=== PATIENT | male | born 1970 | race Caucasian/White ===

== ENCOUNTER 2023-09-21 20:39 | Observation (INO) | payer BC, OTHER ==
--- NOTE | 2023-09-21 21:06 | ERPHSYRPT ---
- History of Present Illness Time Seen by Provider: 09/21/23 21:01 Source: patient, family, EMS Exam Limitations: no limitations Physician History: Pt is Diabetic and has elevated glucose in 300s and N/V today - no abd pain. Prior CVA , but no symptoms reported today and no change in neuro status today. Discussed risks/benefits of testing/Tx with pt and family including CBC, CMP, EKG, Lactate, Lipase, UA, COvid and Flu/RSV shabs, trops,CT abd and they wish to proceed, so these are ordered. Results discussed with pt and family. Timing/Duration: today Severity: moderate Associated Symptoms: nausea, vomiting Allergies/Adverse Reactions: No Known Drug Allergies Allergy (Unverified 09/21/23 21:01) - Review of Systems Constitutional: Fatigue, Malaise, Weakness, No Fever, No Chills Eyes: No Symptoms Ears, Nose, & Throat: No Symptoms Respiratory: No Cough, No Dyspnea Cardiac: No Chest Pain, No Edema, No Syncope Abdominal/Gastrointestinal: Abdominal Pain (with vomiting), Nausea, Vomiting, No Diarrhea Genitourinary Symptoms: No Dysuria Musculoskeletal: No Back Pain, No Neck Pain Skin: No Rash Neurological: No Dizziness, No Focal Weakness, No Sensory Changes Psychological: No Symptoms Endocrine: No Symptoms Hematologic/Lymphatic: No Symptoms Immunological/Allergic: No Symptoms All Other Systems: Reviewed and Negative - Past Medical History Pertinent Past Medical History: Yes Neurological History: Stroke - Nursing Vital Signs Nursing Vital Signs: Initial Vital Signs Temperature 98.7 F 09/21/23 20:41 Pulse Rate 106 H 09/21/23 20:41 Respiratory Rate 20 09/21/23 20:41 Blood Pressure 167/104 09/21/23 20:41 O2 Sat by Pulse Oximetry 94 L 09/21/23 20:41 Pain Scale Pain Intensity 0 - Physical Exam General Appearance: no apparent distress, alert Eye Exam: PERRL/EOMI, eyes nml inspection Ears, Nose, Throat Exam: normal ENT inspection, TMs normal, pharynx normal, moist mucous membranes Neck Exam: normal inspection, non-tender, supple, full range of motion Respiratory Exam: normal breath sounds, lungs clear, No respiratory distress Cardiovascular Exam: regular rate/rhythm, normal heart sounds, normal peripheral pulses Gastrointestinal/Abdomen Exam: soft, normal bowel sounds, tenderness (mild general - no peritoneal signs), guarding, No mass, No pulsatile mass, No rebound Rectal Exam: deferred Back Exam: normal inspection, normal range of motion, No CVA tenderness, No vertebral tenderness Extremity Exam: normal inspection, normal range of motion, pelvis stable Neurologic Exam: alert, oriented x 3, cooperative, normal mood/affect, nml cerebellar function, nml station & gait, sensation nml, No motor deficits Skin Exam: normal color, warm, dry, No rash Lymphatic Exam: No adenopathy SpO2: 94 - Course Nursing assessment & vital signs reviewed: Yes EKG Interpreted by Me: Sinus Tach, Right [place] Deviation, Right Bundle Branch Block, Non-specific ST Changes - CT Exams Abdomen/Pelvis CT Interpretation: Tele-radiologist Report, Other (perinephric fat stranding. ) Ordered Tests: Active Orders 24 hr Category Date Time Status EKG-ER Only STAT Care 09/21/23 21:07 Active IV Insertion STAT Care 09/21/23 21:07 Active ABDOMEN AND PELVIS W/0 CONTRAS [CT] Stat Exams 09/21/23 21:08 Completed CBC W DIFF Stat Lab 09/21/23 21:43 Completed CMP Stat Lab 09/21/23 21:43 Completed CULTURE,URINE Stat Lab 09/21/23 23:11 Received LIPASE Stat Lab 09/21/23 21:43 Completed Lactic Acid Stat Lab 09/21/23 21:07 Completed Lactic Acid Stat Lab 09/21/23 23:43 Received POCT GLUCOSE Stat Lab 09/21/23 20:49 Completed POCT GLUCOSE Stat Lab 09/21/23 22:50 Completed TROPONIN Q4H Lab 09/21/23 21:43 Completed TROPONIN Q4H Lab 09/22/23 01:15 Ordered TROPONIN Q4H Lab 09/22/23 05:15 Ordered UA W/RFX UR CULTURE Stat Lab 09/21/23 23:11 Completed Medication Summary Discontinued Medications Generic Name Dose Route Start Last Admin Trade Name Freq PRN Reason Stop Dose Admin Sodium Chloride 1,000 mls @ 999 mls/hr 09/21/23 21:07 09/21/23 21:29 Sodium Chloride 0.9% 1000 Ml IV 09/21/23 22:07 999 mls/hr .Q1H1M STA Administration Sodium Chloride 1,000 mls @ 999 mls/hr 09/21/23 21:11 09/21/23 23:40 Sodium Chloride 0.9% 1000 Ml IV 09/21/23 22:11 999 mls/hr .Q1H1M STA Administration Sodium Chloride Confirm 09/21/23 21:24 Sodium Chloride 0.9% 1000 Ml Administered 09/21/23 21:25 Dose 1,000 mls @ ud .ROUTE .STK-MED ONE Sodium Chloride Confirm 09/21/23 23:39 Sodium Chloride 0.9% 1000 Ml Administered 09/21/23 23:40 Dose 1,000 mls @ ud .ROUTE .STK-MED ONE Insulin Human Regular 10 unit 09/21/23 21:46 09/21/23 21:56 Insulin Regular, Human 1 Unit IV 09/21/23 21:47 10 unit STAT ONE Administration Insulin Human Regular Confirm 09/21/23 21:54 Insulin Regular, Human 1 Unit Administered 09/21/23 21:55 Dose 10 unit .ROUTE .STK-MED ONE Lorazepam 1 mg 09/21/23 21:50 09/21/23 21:56 Lorazepam 2 Mg/1 Ml 2 Mg Vial IV 09/21/23 21:51 1 mg STAT ONE Administration Lorazepam Confirm 09/21/23 21:52 Lorazepam 2 Mg/1 Ml 2 Mg Vial Administered 09/21/23 21:53 Dose 2 mg .ROUTE .STK-MED ONE Ondansetron HCl 4 mg 09/21/23 21:42 09/21/23 21:46 Ondansetron Hcl 4 Mg/2 Ml Vial IV 09/21/23 21:43 4 mg STAT ONE Administration Ondansetron HCl Confirm 09/21/23 21:44 Ondansetron Hcl 4 Mg/2 Ml Vial Administered 09/21/23 21:45 Dose 4 mg .ROUTE .STK-MED ONE Prochlorperazine Edisylate 10 mg 09/22/23 00:06 09/22/23 00:14 Prochlorperazine Edisylate 10 Mg/2 Ml Vial IM 09/22/23 00:07 10 mg STAT ONE Administration Prochlorperazine Edisylate Confirm 09/22/23 00:09 Prochlorperazine Edisylate 10 Mg/2 Ml Vial Administered 09/22/23 00:10 Dose 10 mg .ROUTE .STK-MED ONE Lab/Rad Data: Laboratory Result Diagrams 09/21/23 21:43 09/21/23 21:43 Laboratory Results 09/21/23 09/21/23 09/21/23 Range/Units 23:11 22:50 21:43 WBC (4.23-9.07) x10^3/uL RBC (4.63-6.08) x10^6/uL Hgb (13.7-17.5) g/dL Hct (40.1-51.0) % MCV (79.0-92.2) fL MCH (25.7-32.2) pg MCHC (32.3-36.5) g/dL RDW (11.6-14.4) % Plt Count (163-337) x10^3/uL MPV (9.4-12.4) fL Gran % (34.0-67.9) % Immature Gran % (Auto) (0.001-0.429) % Nucleat RBC Rel Count (0.00-0.2) % Eos # (Auto) (0.04-0.54) x10^3/uL Immature Gran # (Auto) (0.001-0.031) x10^3u/L Absolute Lymphs (auto) (1.32-3.57) x10^3/uL Absolute Monos (auto) (0.30-0.82) x10^3/uL Absolute Nucleated RBC (0.00-0.012) x10^3u/L Lymphocytes % (21.8-53.1) % Monocytes % (5.3-12.2) % Eosinophils % (0.8-7.0) % Basophils % (0.2-1.2) % Absolute Granulocytes (1.78-5.38) x10^3/uL Basophils # (0.01-0.08) x10^3/uL Sodium (135-145) mmol/L Potassium (3.5-5.1) mmol/L Chloride (98-107) mmol/L Carbon Dioxide (22-30) mmol/L Anion Gap (5-15) MEQ/L BUN (9-20) mg/dL Creatinine (0.66-1.25) mg/dL Estimated GFR ML/MIN Glucose (74-106) mg/dL POC Glucometer 337 H (74 to 106) mg/dL Lactic Acid (0.4-2.0) Calcium (8.4-10.2) mg/dL Total Bilirubin (0.2-1.3) mg/dL AST (17-59) U/L ALT (0-50) U/L Alkaline Phosphatase (38-126) U/L Troponin I (0.000-0.033) ng/mL Serum Total Protein (6.3-8.2) g/dL Albumin (3.5-5.0) g/dL Lipase (23-300) U/L Urine Color Yellow (Yellow) Urine Appearance Clear (Clear) Urine pH 7.0 (4.6-8.0) Ur Specific [place] 1.025 (1.005-1.030) Urine Protein >=1000 A (Negative) Urine Glucose (UA) >=1000 A (Negative) mg/dL Urine Ketones 15 A (Negative) Urine Blood Moderate A (Negative) Urine Nitrite Negative (Negative) Urine Bilirubin Negative (Negative) Urine Urobilinogen 0.2 (0.2) mg/dL Ur Leukocyte Esterase Negative (Negative) U Hyaline Cast (Auto) NONE SEEN (0-2) /LPF Urine Microscopic RBC 11-20 A (0-5) /HPF Urine Microscopic WBC 0-2 (0-5) /HPF Ur Epithelial Cells None Seen (None Seen) /HPF Urine Bacteria None Seen (None Seen) /HPF Urine Culture Reflexed YES (NO) Influenza Type A Ag NEGATIVE (NEGATIVE) Influenza Type B Ag NEGATIVE (NEGATIVE) RSV (PCR) NEGATIVE (NEGATIVE) SARS-CoV-2 (PCR) NEGATIVE (NEGATIVE) 09/21/23 09/21/23 09/21/23 Range/Units 21:43 21:43 21:43 WBC 12.6 H (4.23-9.07) x10^3/uL RBC 5.00 (4.63-6.08) x10^6/uL Hgb 14.6 (13.7-17.5) g/dL Hct 44.2 (40.1-51.0) % MCV 88.4 (79.0-92.2) fL MCH 29.2 (25.7-32.2) pg MCHC 33.0 (32.3-36.5) g/dL RDW 12.4 (11.6-14.4) % Plt Count 298 (163-337) x10^3/uL MPV 10.2 (9.4-12.4) fL Gran % 83.8 H (34.0-67.9) % Immature Gran % (Auto) 0.8 H (0.001-0.429) % Nucleat RBC Rel Count 0.0 (0.00-0.2) % Eos # (Auto) 0.01 L (0.04-0.54) x10^3/uL Immature Gran # (Auto) 0.10 H (0.001-0.031) x10^3u/L Absolute Lymphs (auto) 1.14 L (1.32-3.57) x10^3/uL Absolute Monos (auto) 0.70 (0.30-0.82) x10^3/uL Absolute Nucleated RBC 0.00 (0.00-0.012) x10^3u/L Lymphocytes % 9.0 L (21.8-53.1) % Monocytes % 5.6 (5.3-12.2) % Eosinophils % 0.1 L (0.8-7.0) % Basophils % 0.7 (0.2-1.2) % Absolute Granulocytes 10.57 H (1.78-5.38) x10^3/uL Basophils # 0.09 H (0.01-0.08) x10^3/uL Sodium 137 (135-145) mmol/L Potassium 4.3 (3.5-5.1) mmol/L Chloride 97 L (98-107) mmol/L Carbon Dioxide 27 (22-30) mmol/L Anion Gap 18.0 H (5-15) MEQ/L BUN 27 H (9-20) mg/dL Creatinine 0.94 (0.66-1.25) mg/dL Estimated GFR 96.3 ML/MIN Glucose 423 H (74-106) mg/dL POC Glucometer (74 to 106) mg/dL Lactic Acid (0.4-2.0) Calcium 10.4 H (8.4-10.2) mg/dL Total Bilirubin 0.50 (0.2-1.3) mg/dL AST 22 (17-59) U/L ALT 25 (0-50) U/L Alkaline Phosphatase 104 (38-126) U/L Troponin I < 0.012 (0.000-0.033) ng/mL Serum Total Protein 7.3 (6.3-8.2) g/dL Albumin 4.3 (3.5-5.0) g/dL Lipase 182 (23-300) U/L Urine Color (Yellow) Urine Appearance (Clear) Urine pH (4.6-8.0) Ur Specific [place] (1.005-1.030) Urine Protein (Negative) Urine Glucose (UA) (Negative) mg/dL Urine Ketones (Negative) Urine Blood (Negative) Urine Nitrite (Negative) Urine Bilirubin (Negative) Urine Urobilinogen (0.2) mg/dL Ur Leukocyte Esterase (Negative) U Hyaline Cast (Auto) (0-2) /LPF Urine Microscopic RBC (0-5) /HPF Urine Microscopic WBC (0-5) /HPF Ur Epithelial Cells (None Seen) /HPF Urine Bacteria (None Seen) /HPF Urine Culture Reflexed (NO) Influenza Type A Ag (NEGATIVE) Influenza Type B Ag (NEGATIVE) RSV (PCR) (NEGATIVE) SARS-CoV-2 (PCR) (NEGATIVE) 09/21/23 09/21/23 Range/Units 21:07 20:49 WBC (4.23-9.07) x10^3/uL RBC (4.63-6.08) x10^6/uL Hgb (13.7-17.5) g/dL Hct (40.1-51.0) % MCV (79.0-92.2) fL MCH (25.7-32.2) pg MCHC (32.3-36.5) g/dL RDW (11.6-14.4) % Plt Count (163-337) x10^3/uL MPV (9.4-12.4) fL Gran % (34.0-67.9) % Immature Gran % (Auto) (0.001-0.429) % Nucleat RBC Rel Count (0.00-0.2) % Eos # (Auto) (0.04-0.54) x10^3/uL Immature Gran # (Auto) (0.001-0.031) x10^3u/L Absolute Lymphs (auto) (1.32-3.57) x10^3/uL Absolute Monos (auto) (0.30-0.82) x10^3/uL Absolute Nucleated RBC (0.00-0.012) x10^3u/L Lymphocytes % (21.8-53.1) % Monocytes % (5.3-12.2) % Eosinophils % (0.8-7.0) % Basophils % (0.2-1.2) % Absolute Granulocytes (1.78-5.38) x10^3/uL Basophils # (0.01-0.08) x10^3/uL Sodium (135-145) mmol/L Potassium (3.5-5.1) mmol/L Chloride (98-107) mmol/L Carbon Dioxide (22-30) mmol/L Anion Gap (5-15) MEQ/L BUN (9-20) mg/dL Creatinine (0.66-1.25) mg/dL Estimated GFR ML/MIN Glucose (74-106) mg/dL POC Glucometer 401 H (74 to 106) mg/dL Lactic Acid 2.4 H (0.4-2.0) Calcium (8.4-10.2) mg/dL Total Bilirubin (0.2-1.3) mg/dL AST (17-59) U/L ALT (0-50) U/L Alkaline Phosphatase (38-126) U/L Troponin I (0.000-0.033) ng/mL Serum Total Protein (6.3-8.2) g/dL Albumin (3.5-5.0) g/dL Lipase (23-300) U/L Urine Color (Yellow) Urine Appearance (Clear) Urine pH (4.6-8.0) Ur Specific [place] (1.005-1.030) Urine Protein (Negative) Urine Glucose (UA) (Negative) mg/dL Urine Ketones (Negative) Urine Blood (Negative) Urine Nitrite (Negative) Urine Bilirubin (Negative) Urine Urobilinogen (0.2) mg/dL Ur Leukocyte Esterase (Negative) U Hyaline Cast (Auto) (0-2) /LPF Urine Microscopic RBC (0-5) /HPF Urine Microscopic WBC (0-5) /HPF Ur Epithelial Cells (None Seen) /HPF Urine Bacteria (None Seen) /HPF Urine Culture Reflexed (NO) Influenza Type A Ag (NEGATIVE) Influenza Type B Ag (NEGATIVE) RSV (PCR) (NEGATIVE) SARS-CoV-2 (PCR) (NEGATIVE) - Progress Progress: improved, re-examined Progress Note: 09/22/23 00:[address] Blankenship , Hospitalist for discussion of possible obs for uncontrolled DM and vomiting. 09/22/23 01:[address] Blankenship and pt and family and all agree best to place the pt on obs and rehydrate, Tx DM. Discussed with Dr.: Other (Dr. Blankenship) Will see patient in: hospital (observation) Counseled pt/family regarding: lab results, diagnosis, need for follow-up, rad results Medical Desision Making - Independent Historian Additional History obtained from: Family, EMS - Discussion of managment Care discussed with:: hospitalist Reviewed:: Test results, Need for additional workup Agreed on:: Treatment plan, need for follow-up, decision to admit - Diagnostic Testing Diagnostic test were ordered, analyzed, and reviewed by me: Yes Radiological Interpretation: Teleradiologist Report - Risk of complications The pt has a mod risk of morbidity or mortality based on: Need for prescription drug management The pt has a high risk of morbidity or mortality based on: Decision regarding hospitilization or escalation of hosp level of care - Departure Departure Disposition: Observation Clinical Impression: Diabetes uncontrolled. , Intractable vomiting Condition: Good Critical Care Time: No Referrals: DOCTOR,NO FAMILY [Primary Care Provider] - Follow up/PCP as directed
[2023-09-21] MEDS ORDERED: Sodium Chloride 0.9% 1000 ML 1,000 ML ONE ×2 (21:24→23:39)
[2023-09-21] MEDS: Sodium Chloride 0.9% 1000 ML 1,000 ML IV STA ×2 (21:29→23:40)
[2023-09-21] MEDS ORDERED: Zofran 4 MG/2 ML VIAL ONE (21:44)
[2023-09-21] MEDS: Zofran 4 MG/2 ML VIAL IV ONE (21:46)
[2023-09-21 21:47] LABS: Absolute Neutrophil Ct (ANC) 10.57 x10^3/uL (1.78-5.38); BASOPHIL % 0.7 % (0.2-1.2); Basophil (Absolute #) 0.09 x10^3/uL (0.01-0.08); Eosinophil % 0.1 % (0.8-7.0); Eosinophil (Absolute #) 0.01 x10^3/uL (0.04-0.54); Hematocrit 44.2 % (40.1-51.0); Hemoglobin 14.6 g/dL (13.7-17.5); IMMATURE GRAN % 0.8 % (0.001-0.429); Lymphocyte (Absolute #) 1.14 x10^3/uL (1.32-3.57); Mean Cell Volume 88.4 fL (79.0-92.2); Mean Corpuscular Hemoglobin 29.2 pg (25.7-32.2); Mean Platelet Volume 10.2 fL (9.4-12.4); Monocytes % 5.6 % (5.3-12.2); Neutrophil % 83.8 % (34.0-67.9); Platelet Count 298 x10^3/uL (163-337); Red Cell Distribution Width 12.4 % (11.6-14.4); White Blood Count 12.6 x10^3/uL (4.23-9.07)
[2023-09-21] MEDS ORDERED: Ativan 2 MG/1 ML VIAL ONE (21:52)
[2023-09-21] MEDS ORDERED: HUMULIN R ONE (21:54)
[2023-09-21] MEDS: HUMULIN R IV ONE (21:56)
[2023-09-21] MEDS: Ativan 2 MG/1 ML VIAL IV ONE (21:56)
[2023-09-21 22:01] LABS: ALBUMIN 4.3 g/dL (3.5-5.0); BILIRUBIN,TOTAL 0.5 mg/dL (0.2-1.3); Calcium 10.4 mg/dL (8.4-10.2); Creatinine 1 0.94 mg/dL (0.66-1.25); EST GLOMERULAR FILTRATION RATE 96.3 ML/MIN; Potassium 4.3 mmol/L (3.5-5.1); Total Protein 7.3 g/dL (6.3-8.2)
[2023-09-21 22:24] LABS: INFLUENZA A NEGATIVE (NEGATIVE); INFLUENZA B NEGATIVE (NEGATIVE); RESPIRATORY SYNCTIAL VIRUS NEGATIVE (NEGATIVE); SARS-CoV-2 Xpert Express NEGATIVE (NEGATIVE)
--- NOTE | 2023-09-21 22:43 | XRAY ---
CLINICAL HISTORY: abd pain COMPARISON: - TECHNIQUE: Contiguous axial images were obtained from the level of the diaphragm to the pubic symphysis without intravenous or oral contrast. Coronal and sagittal reconstructions were likewise performed and indicated to increase the sensitivity for detecting clinically relevant pathology. CT scan was performed according to ALARA (as low as reasonably achievable) FINDINGS: The visualised lung bases are clear. Evaluation of the abdominal and pelvic visceral organs is limited without intravenous contrast. The unenhanced liver, spleen, pancreas, and adrenal glands are grossly unremarkable. The gallbladder is present. The kidneys are normal in size and attenuation without obvious calcification. There is no hydronephrosis . Bilateral perinephric fat stranding is seen. The ureters are normal in calibre. No adenopathy or fluid collections are seen. No evidence of focal or diffuse bowel wall thickening or evidence of bowel obstruction is seen. The aorta is normal in calibre. The urinary bladder is normal in contour. Pelvic viscera are grossly unremarkable. No aggressive appearing osseous lesions are identified. Degenerative changes are seen in the visualized spine. IMPRESSION: 1. Bilateral perinephric fat stranding 2. No other abnormality seen in the present study Electronically Signed by: Aditya Gutierrez MD. (09/21/2023 22:39:11 EDT)
[2023-09-21 23:19] LABS: Appearance Clear (Clear); Bacteria None Seen /HPF (None Seen); Bilirubin Negative (Negative); Blood Moderate (Negative); Epithelial Cells None Seen /HPF (None Seen); Glucose, Urine >=1000 mg/dL (Negative); Hyaline Casts NONE SEEN /LPF (0-2); Ketones 15 (Negative); Leukocyte Esterase Negative (Negative); Nitrite Negative (Negative); Protein,Urine Dip >=1000 (Negative); Specific Gravity 1.025 (1.005-1.030); Urobilinogen 0.2 mg/dL (0.2); WBC 0-2 /HPF (0-5)
[2023-09-21 23:25] LABS: ADD URINE CULTURE? YES (NO)
[2023-09-22] MEDS ORDERED: Compazine 10 MG/2 ML ONE (00:09)
[2023-09-22] MEDS: Compazine 10 MG/2 ML IM ONE (00:14)
[2023-09-22] MEDS ORDERED: Ativan 2 MG/1 ML VIAL ONE (01:38)
[2023-09-22] MEDS: Ativan 2 MG/1 ML VIAL IM ONE (01:41)
--- NOTE | 2023-09-22 02:02 | PCM.HP ---
History of Present Illness - Chief Complaint Chief Complaint: n/v Date: 09/21/23 History of Present Illness: Mr. MCKEON is a 52 year old male with a past medical history significant for hypertension, hyperlipidemia and diabetes who presents to the hospital with complaints of nausea and vomiting. He was found to be markedly hyperglycemic with blood sugars > 350. He was given Zofran but nausea and vomiting persisted and blood sugars remained high, so he has been recommended for admission. No fever/chills. No chest pain or shortness of breath. No dysuria, hematuria or foamy urine. No NSAIDs or exposure to contrast. - Review of Systems Constitutional: No Fever, No Chills Eyes: No Vision Changes Respiratory: No Cough, No Orthopnea, No Short Of Breath Cardiac: No Chest Pain, No Palpitations Abdominal/Gastrointestinal: Nausea, Vomiting, No Abdominal Pain, No Diarrhea Genitourinary Symptoms: No Dysuria, No Frequency, No Hematuria Musculoskeletal: No Arthralgias, No Myalgias Skin: No Pruritis, No Rash Neurological: No Dizziness, No Focal Weakness Psychological: No Suicidal Ideations Endocrine: No Polyuria, No Polydipsia Medications & Allergies Allergies/Adverse Reactions: Allergies Allergy/AdvReac Type Severity Reaction Status Date / Time No Known Drug Allergies Allergy Unverified 09/21/23 21:01 - Past Medical History Past Medical History: Yes Neurological History: Stroke ENT History: No Pertinent History Cardiac History: Hypertension Endocrine Medical History: Diabetes Type II Musculoskelatal History: No Pertinent History GI Medical History: No Pertinent History History: No Pertinent History Pyscho-Social History: Anxiety, Depression Male Reproductive Disorders: No Pertinent History - Past Surgical History Past Surgical History: Yes Neuro Surgical History: No Pertinent History Cardiac History: No Pertinent History Respiratory Surgery: No Pertinent History GI Surgical History: Appendectomy Genitourinary Surgical Hx: No Pertinent History Musculskeletal Surgical Hx: Amputation Male Surgical History: No Pertinent History Other Surgical History: Rt AKA - Social History Smoking Status: Current every day smoker How long have you smoked: 39 yrs Exposure to second hand smoke: No Alcohol: Occasionally Drug Use: marijuana - Social Determinants of Health Will the patient participate in the screening: Yes Do you worry about a steady place to live?: No Do you have any problems with any of the following?: No known problems In the past 12 months,have you had to go without utilities?: No Have you or anyone in your house had to go without enough: No Transportation Issues: No Has anyone in your support network made you feel unsafe?: No - Physical Exam Vital Signs: Vital Signs - 24 hr Temp Pulse Resp BP BP Pulse Ox 09/22/23 01:16 94 L 09/22/23 00:14 120 H 22 155/87 96 09/21/23 22:30 154/69 09/21/23 21:01 105 H 20 160/102 97 09/21/23 20:41 98.7 F 106 H 20 167/104 94 L General Appearance: mild distress Neurologic Exam: cooperative Ears, Nose, Throat Exam: dry mucous membranes Neck Exam: non-tender, supple Respiratory Exam: No respiratory distress Cardiovascular Exam: regular rate/rhythm Gastrointestinal/Abdomen Exam: soft Extremity Exam: No pedal edema, No swelling Skin Exam: normal color, No rash, No petechiae Results - Labs Lab/Micro Results: Lab Results-Last 24 Hours 09/21/23 09/21/23 09/21/23 Range/Units 20:49 21:07 21:43 WBC 12.6 H (4.23-9.07) x10^3/uL RBC 5.00 (4.63-6.08) x10^6/uL Hgb 14.6 (13.7-17.5) g/dL Hct 44.2 (40.1-51.0) % MCV 88.4 (79.0-92.2) fL MCH 29.2 (25.7-32.2) pg MCHC 33.0 (32.3-36.5) g/dL RDW 12.4 (11.6-14.4) % Plt Count 298 (163-337) x10^3/uL MPV 10.2 (9.4-12.4) fL Gran % 83.8 H (34.0-67.9) % Immature Gran % (Auto) 0.8 H (0.001-0.429) % Nucleat RBC Rel Count 0.0 (0.00-0.2) % Eos # (Auto) 0.01 L (0.04-0.54) x10^3/uL Immature Gran # (Auto) 0.10 H (0.001-0.031) x10^3u/L Absolute Lymphs (auto) 1.14 L (1.32-3.57) x10^3/uL Absolute Monos (auto) 0.70 (0.30-0.82) x10^3/uL Absolute Nucleated RBC 0.00 (0.00-0.012) x10^3u/L Lymphocytes % 9.0 L (21.8-53.1) % Monocytes % 5.6 (5.3-12.2) % Eosinophils % 0.1 L (0.8-7.0) % Basophils % 0.7 (0.2-1.2) % Absolute Granulocytes 10.57 H (1.78-5.38) x10^3/uL Basophils # 0.09 H (0.01-0.08) x10^3/uL Sodium (135-145) mmol/L Potassium (3.5-5.1) mmol/L Chloride (98-107) mmol/L Carbon Dioxide (22-30) mmol/L Anion Gap (5-15) MEQ/L BUN (9-20) mg/dL Creatinine (0.66-1.25) mg/dL Estimated GFR ML/MIN Glucose (74-106) mg/dL POC Glucometer 401 H (74 to 106) mg/dL Lactic Acid 2.4 H (0.4-2.0) Calcium (8.4-10.2) mg/dL Total Bilirubin (0.2-1.3) mg/dL AST (17-59) U/L ALT (0-50) U/L Alkaline Phosphatase (38-126) U/L Troponin I (0.000-0.033) ng/mL Serum Total Protein (6.3-8.2) g/dL Albumin (3.5-5.0) g/dL Lipase (23-300) U/L Urine Color (Yellow) Urine Appearance (Clear) Urine pH (4.6-8.0) Ur Specific [place] (1.005-1.030) Urine Protein (Negative) Urine Glucose (UA) (Negative) mg/dL Urine Ketones (Negative) Urine Blood (Negative) Urine Nitrite (Negative) Urine Bilirubin (Negative) Urine Urobilinogen (0.2) mg/dL Ur Leukocyte Esterase (Negative) U Hyaline Cast (Auto) (0-2) /LPF Urine Microscopic RBC (0-5) /HPF Urine Microscopic WBC (0-5) /HPF Ur Epithelial Cells (None Seen) /HPF Urine Bacteria (None Seen) /HPF Urine Culture Reflexed (NO) Influenza Type A Ag (NEGATIVE) Influenza Type B Ag (NEGATIVE) RSV (PCR) (NEGATIVE) SARS-CoV-2 (PCR) (NEGATIVE) 09/21/23 09/21/23 09/21/23 Range/Units 21:43 21:43 21:43 WBC (4.23-9.07) x10^3/uL RBC (4.63-6.08) x10^6/uL Hgb (13.7-17.5) g/dL Hct (40.1-51.0) % MCV (79.0-92.2) fL MCH (25.7-32.2) pg MCHC (32.3-36.5) g/dL RDW (11.6-14.4) % Plt Count (163-337) x10^3/uL MPV (9.4-12.4) fL Gran % (34.0-67.9) % Immature Gran % (Auto) (0.001-0.429) % Nucleat RBC Rel Count (0.00-0.2) % Eos # (Auto) (0.04-0.54) x10^3/uL Immature Gran # (Auto) (0.001-0.031) x10^3u/L Absolute Lymphs (auto) (1.32-3.57) x10^3/uL Absolute Monos (auto) (0.30-0.82) x10^3/uL Absolute Nucleated RBC (0.00-0.012) x10^3u/L Lymphocytes % (21.8-53.1) % Monocytes % (5.3-12.2) % Eosinophils % (0.8-7.0) % Basophils % (0.2-1.2) % Absolute Granulocytes (1.78-5.38) x10^3/uL Basophils # (0.01-0.08) x10^3/uL Sodium 137 (135-145) mmol/L Potassium 4.3 (3.5-5.1) mmol/L Chloride 97 L (98-107) mmol/L Carbon Dioxide 27 (22-30) mmol/L Anion Gap 18.0 H (5-15) MEQ/L BUN 27 H (9-20) mg/dL Creatinine 0.94 (0.66-1.25) mg/dL Estimated GFR 96.3 ML/MIN Glucose 423 H (74-106) mg/dL POC Glucometer (74 to 106) mg/dL Lactic Acid (0.4-2.0) Calcium 10.4 H (8.4-10.2) mg/dL Total Bilirubin 0.50 (0.2-1.3) mg/dL AST 22 (17-59) U/L ALT 25 (0-50) U/L Alkaline Phosphatase 104 (38-126) U/L Troponin I < 0.012 (0.000-0.033) ng/mL Serum Total Protein 7.3 (6.3-8.2) g/dL Albumin 4.3 (3.5-5.0) g/dL Lipase 182 (23-300) U/L Urine Color (Yellow) Urine Appearance (Clear) Urine pH (4.6-8.0) Ur Specific [place] (1.005-1.030) Urine Protein (Negative) Urine Glucose (UA) (Negative) mg/dL Urine Ketones (Negative) Urine Blood (Negative) Urine Nitrite (Negative) Urine Bilirubin (Negative) Urine Urobilinogen (0.2) mg/dL Ur Leukocyte Esterase (Negative) U Hyaline Cast (Auto) (0-2) /LPF Urine Microscopic RBC (0-5) /HPF Urine Microscopic WBC (0-5) /HPF Ur Epithelial Cells (None Seen) /HPF Urine Bacteria (None Seen) /HPF Urine Culture Reflexed (NO) Influenza Type A Ag NEGATIVE (NEGATIVE) Influenza Type B Ag NEGATIVE (NEGATIVE) RSV (PCR) NEGATIVE (NEGATIVE) SARS-CoV-2 (PCR) NEGATIVE (NEGATIVE) 09/21/23 09/21/23 Range/Units 22:50 23:11 WBC (4.23-9.07) x10^3/uL RBC (4.63-6.08) x10^6/uL Hgb (13.7-17.5) g/dL Hct (40.1-51.0) % MCV (79.0-92.2) fL MCH (25.7-32.2) pg MCHC (32.3-36.5) g/dL RDW (11.6-14.4) % Plt Count (163-337) x10^3/uL MPV (9.4-12.4) fL Gran % (34.0-67.9) % Immature Gran % (Auto) (0.001-0.429) % Nucleat RBC Rel Count (0.00-0.2) % Eos # (Auto) (0.04-0.54) x10^3/uL Immature Gran # (Auto) (0.001-0.031) x10^3u/L Absolute Lymphs (auto) (1.32-3.57) x10^3/uL Absolute Monos (auto) (0.30-0.82) x10^3/uL Absolute Nucleated RBC (0.00-0.012) x10^3u/L Lymphocytes % (21.8-53.1) % Monocytes % (5.3-12.2) % Eosinophils % (0.8-7.0) % Basophils % (0.2-1.2) % Absolute Granulocytes (1.78-5.38) x10^3/uL Basophils # (0.01-0.08) x10^3/uL Sodium (135-145) mmol/L Potassium (3.5-5.1) mmol/L Chloride (98-107) mmol/L Carbon Dioxide (22-30) mmol/L Anion Gap (5-15) MEQ/L BUN (9-20) mg/dL Creatinine (0.66-1.25) mg/dL Estimated GFR ML/MIN Glucose (74-106) mg/dL POC Glucometer 337 H (74 to 106) mg/dL Lactic Acid (0.4-2.0) Calcium (8.4-10.2) mg/dL Total Bilirubin (0.2-1.3) mg/dL AST (17-59) U/L ALT (0-50) U/L Alkaline Phosphatase (38-126) U/L Troponin I (0.000-0.033) ng/mL Serum Total Protein (6.3-8.2) g/dL Albumin (3.5-5.0) g/dL Lipase (23-300) U/L Urine Color Yellow (Yellow) Urine Appearance Clear (Clear) Urine pH 7.0 (4.6-8.0) Ur Specific [place] 1.025 (1.005-1.030) Urine Protein >=1000 A (Negative) Urine Glucose (UA) >=1000 A (Negative) mg/dL Urine Ketones 15 A (Negative) Urine Blood Moderate A (Negative) Urine Nitrite Negative (Negative) Urine Bilirubin Negative (Negative) Urine Urobilinogen 0.2 (0.2) mg/dL Ur Leukocyte Esterase Negative (Negative) U Hyaline Cast (Auto) NONE SEEN (0-2) /LPF Urine Microscopic RBC 11-20 A (0-5) /HPF Urine Microscopic WBC 0-2 (0-5) /HPF Ur Epithelial Cells None Seen (None Seen) /HPF Urine Bacteria None Seen (None Seen) /HPF Urine Culture Reflexed YES (NO) Influenza Type A Ag (NEGATIVE) Influenza Type B Ag (NEGATIVE) RSV (PCR) (NEGATIVE) SARS-CoV-2 (PCR) (NEGATIVE) Accuchecks Date 09/21/23 Time 22:50 - Radiology Impressions Radiology Exams & Impressions: Radiology Procedures Category Date Time Status ABDOMEN AND PELVIS W/0 CONTRAS [CT] Stat Exams 09/21/23 21:08 Completed Assessment/Plan (1) Intractable vomiting Current Visit: Yes Status: Acute Assessment & Plan: Likely from diabetic gastroparesis versus viral gastroenteritis 1. Admit to hospital 2. IVFs 3. Antiemetics 4. Follow I/Os 5. Watch electrolytes, kidney function closely Code(s): R11.10 - VOMITING, UNSPECIFIED (2) Type 2 diabetes mellitus with diabetic chronic kidney disease Current Visit: Yes Status: Acute Assessment & Plan: Diabetes with significant proteinuria and prerenal azotemia 1. IVFs 2. Check UPC 3. FSBS qAC/HS with SSI 4. Monitor blood sugars Code(s): E11.22 - TYPE 2 DIABETES MELLITUS W DIABETIC CHRONIC KIDNEY DISEASE (3) Essential (primary) hypertension Current Visit: Yes Status: Acute Assessment & Plan: Blood pressure under reasonable control 1. Continue bp meds 2. Low Na diet 3. Monitor blood pressure readings Code(s): I10 - ESSENTIAL (PRIMARY) HYPERTENSION Telemedicine Encounter - Telemedicine Encounter Telemedicine Encounter: "The entirety of this encounter was performed via Telemedicine" This visit was performed using real-time audio and video connection between my location and thepatients locationwith the assistance of a surrogateat the patients location. Written or verbal consent was obtained from the patient/guardian to perform this visit [email or web address]. Any patient questions regarding the telemedicine interaction were answered.
[2023-09-22] MEDS ORDERED: Docusate Sodium 100 MG PO PRN (02:29)
[2023-09-22] MEDS ORDERED: TYLENOL 325 MG PO PRN (02:29)
[2023-09-22] MEDS: Sodium Chloride 0.9% 1000 ML 1,000 ML IV SCH (03:06)
[2023-09-22] MEDS: HUMALOG SQ PRN ×2 (03:35→13:11)
[2023-09-22] MEDS ORDERED: Phenergan 25 MG INJ ONE ×2 (03:41→22:31)
[2023-09-22] MEDS ORDERED: Sodium Chloride 0.9% 100 ML ONE (03:41)
[2023-09-22] MEDS: Phenergan 25 MG INJ*** 25 MG in Sodium Chloride 0.9% 100 ML IV PRN (03:47)
[2023-09-22 04:13] LABS: CREATININE,URINE RANDOM 41.6 MG/DL
[2023-09-22] MEDS: TRANDATE 20 MG/4 ML SYRINGE IV ONE (06:04)
[2023-09-22 06:23] LABS: Absolute Neutrophil Ct (ANC) 8.47 x10^3/uL (1.78-5.38); BASOPHIL % 0.5 % (0.2-1.2); Basophil (Absolute #) 0.06 x10^3/uL (0.01-0.08); Eosinophil % 0.2 % (0.8-7.0); Eosinophil (Absolute #) 0.02 x10^3/uL (0.04-0.54); Hematocrit 40.5 % (40.1-51.0); Hemoglobin 13.5 g/dL (13.7-17.5); IMMATURE GRAN # 0.09 x10^3u/L (0.001-0.031); IMMATURE GRAN % 0.7 % (0.001-0.429); Lymphocyte (Absolute #) 2.16 x10^3/uL (1.32-3.57); Lymphocytes % 17.7 % (21.8-53.1); Mean Cell Volume 88.4 fL (79.0-92.2); Mean Corpuscular Hemoglobin 29.5 pg (25.7-32.2); Mean Corpuscular Hgb Concent. 33.3 g/dL (32.3-36.5); Mean Platelet Volume 10.4 fL (9.4-12.4); Monocytes % 11.5 % (5.3-12.2); Neutrophil % 69.4 % (34.0-67.9); Platelet Count 314 x10^3/uL (163-337); Red Blood Count 4.58 x10^6/uL (4.63-6.08); Red Cell Distribution Width 12.8 % (11.6-14.4); White Blood Count 12.2 x10^3/uL (4.23-9.07)
[2023-09-22 06:35] LABS: ANION GAP 13.9 MEQ/L (5-15); BILIRUBIN,TOTAL 0.4 mg/dL (0.2-1.3); Calcium 9.6 mg/dL (8.4-10.2); Creatinine 1 0.93 mg/dL (0.66-1.25); EST GLOMERULAR FILTRATION RATE 97.6 ML/MIN; Potassium 3.7 mmol/L (3.5-5.1); Total Protein 7.1 g/dL (6.3-8.2)
[2023-09-22] MEDS: Sodium Chloride 0.9% 1000 ML 1,000 ML IV STA (08:43)
[2023-09-22] MEDS ORDERED: Levofloxacin 500MG/100ML D5W 500 MG/100 ML BAG IV SCH (10:00)
[2023-09-22] MEDS: Lantus Insulin SQ SCH (10:39)
[2023-09-22] MEDS: Lopressor 50 MG PO SCH (10:40)
[2023-09-22] MEDS: Zestril 10 MG PO SCH (10:40)
[2023-09-22] MEDS: Protonix 40MG Tablet PO SCH (10:40)
[2023-09-22] MEDS: ENOXAPARIN SODIUM SQ SCH (10:40)
[2023-09-22] MEDS ORDERED: ZOFRAN ODT 4 MG PO PRN (10:44)
[2023-09-22] MEDS ORDERED: Lopressor 25MG Tab PO SCH (10:45)
--- NOTE | 2023-09-22 10:51 | PCM.NOTE ---
Date and Time: 09/22/23 1046 Subjective Assessment: 09/22/23 Mr. MCKEON is a 52 year old male with a past medical history significant for hypertension, hyperlipidemia and diabetes. He presented to the hospital on 09/21/23 with complaints of nausea and vomiting. He was found to be markedly hyperglycemic with blood sugars > 350. He was given Zofran but nausea and vomiting persisted and blood sugars remained high, so he has been recommended for admission. No fever/chills. No chest pain or shortness of breath. No dysuria, hematuria or foamy urine. No NSAIDs or exposure to contrast. N/V have resolved this AM. He states he is still recovering from yesterday. He admits to marijuana use BID. Sxs may be r/t this. UDS pending. Lactic acid elevated this morning at 3.2- 1 l fluid bolus gave. CT abd/ pelvis negative for acute concern. Levaquin stopped as there is no current need. Will continue IVF and PRN meds for N/V. Likely will d/c tomorrow. He c/o of a H/A today. He denies CP, SOB, abd pain, N/V/D today. He admits to not taking meds as he should and could not remember when he last took his meds. - Review of Systems Constitutional: No Fever, No Chills Eyes: No Symptoms Ears, Nose, & Throat: No Symptoms Respiratory: No Cough, No Short Of Breath Cardiac: No Chest Pain, No Edema, No Syncope Abdominal/Gastrointestinal: Nausea, Vomiting, No Abdominal Pain, No Diarrhea Genitourinary Symptoms: No Dysuria Musculoskeletal: No Back Pain, No Neck Pain Skin: No Rash Neurological: No Dizziness, No Focal Weakness, No Sensory Changes Psychological: No Symptoms Endocrine: No Symptoms Hematologic/Lymphatic: No Symptoms Immunological/Allergic: No Symptoms Objective Exam General Appearance: obese Neurologic Exam: alert, oriented x 3, nml cerebellar function, sensation nml, No motor deficits Skin Exam: normal color, warm, dry Eye Exam: PERRL, EOMI, eyes nml inspection Ears, Nose, Throat Exam: normal ENT inspection, pharynx normal, moist mucous membranes Neck Exam: normal inspection, non-tender, supple, full range of motion Respiratory Exam: normal breath sounds, lungs clear, No respiratory distress Cardiovascular Exam: regular rate/rhythm, normal heart sounds, tachycardia Gastrointestinal/Abdomen Exam: soft, No tenderness, No mass Extremity Exam: normal inspection, normal range of motion Back Exam: normal inspection, normal range of motion, No CVA tenderness, No vertebral tenderness Male Genitalia Exam: deferred Rectal Exam: deferred Objective Data Vital Signs: Vital Signs - 24 hr Temp Pulse Resp BP BP Pulse Ox 09/22/23 07:12 98.2 F 104 H 16 159/97 94 L 09/22/23 07:04 95 09/22/23 06:04 212/114 95 09/22/23 03:40 99.1 F 131 H 28 H 168/102 94 L 09/22/23 02:36 120 H 94 L 09/22/23 01:16 94 L 09/22/23 00:14 120 H 22 155/87 96 09/21/23 22:30 154/69 09/21/23 21:01 105 H 20 160/102 97 09/21/23 20:41 98.7 F 106 H 20 167/104 94 L Pain Assessment - Last Documented Pain Intensity 0 Intake and Output: Intake & Output 09/19/23 09/20/23 09/21/23 09/22/23 11:59 11:59 11:59 11:59 Intake Total 683 Output Total 425 Balance 258 Weight 139.2 kg Lab Results: Lab Results-Last 24 Hours 09/21/23 09/21/23 09/21/23 Range/Units 20:49 21:07 21:43 WBC 12.6 H (4.23-9.07) x10^3/uL RBC 5.00 (4.63-6.08) x10^6/uL Hgb 14.6 (13.7-17.5) g/dL Hct 44.2 (40.1-51.0) % MCV 88.4 (79.0-92.2) fL MCH 29.2 (25.7-32.2) pg MCHC 33.0 (32.3-36.5) g/dL RDW 12.4 (11.6-14.4) % Plt Count 298 (163-337) x10^3/uL MPV 10.2 (9.4-12.4) fL Gran % 83.8 H (34.0-67.9) % Immature Gran % (Auto) 0.8 H (0.001-0.429) % Nucleat RBC Rel Count 0.0 (0.00-0.2) % Eos # (Auto) 0.01 L (0.04-0.54) x10^3/uL Immature Gran # (Auto) 0.10 H (0.001-0.031) x10^3u/L Absolute Lymphs (auto) 1.14 L (1.32-3.57) x10^3/uL Absolute Monos (auto) 0.70 (0.30-0.82) x10^3/uL Absolute Nucleated RBC 0.00 (0.00-0.012) x10^3u/L Lymphocytes % 9.0 L (21.8-53.1) % Monocytes % 5.6 (5.3-12.2) % Eosinophils % 0.1 L (0.8-7.0) % Basophils % 0.7 (0.2-1.2) % Absolute Granulocytes 10.57 H (1.78-5.38) x10^3/uL Basophils # 0.09 H (0.01-0.08) x10^3/uL Sodium (135-145) mmol/L Potassium (3.5-5.1) mmol/L Chloride (98-107) mmol/L Carbon Dioxide (22-30) mmol/L Anion Gap (5-15) MEQ/L BUN (9-20) mg/dL Creatinine (0.66-1.25) mg/dL Estimated GFR ML/MIN Glucose (74-106) mg/dL POC Glucometer 401 H (74 to 106) mg/dL Lactic Acid 2.4 H (0.4-2.0) Calcium (8.4-10.2) mg/dL Total Bilirubin (0.2-1.3) mg/dL AST (17-59) U/L ALT (0-50) U/L Alkaline Phosphatase (38-126) U/L Troponin I (0.000-0.033) ng/mL Serum Total Protein (6.3-8.2) g/dL Albumin (3.5-5.0) g/dL Lipase (23-300) U/L Urine Color (Yellow) Urine Appearance (Clear) Urine pH (4.6-8.0) Ur Specific [place] (1.005-1.030) Urine Protein (Negative) Urine Glucose (UA) (Negative) mg/dL Urine Ketones (Negative) Urine Blood (Negative) Urine Nitrite (Negative) Urine Bilirubin (Negative) Urine Urobilinogen (0.2) mg/dL Ur Leukocyte Esterase (Negative) U Hyaline Cast (Auto) (0-2) /LPF Urine Microscopic RBC (0-5) /HPF Urine Microscopic WBC (0-5) /HPF Ur Epithelial Cells (None Seen) /HPF Urine Bacteria (None Seen) /HPF Urine Culture Reflexed (NO) Ur Random Creatinine MG/DL U Random Total Protein (0-12) mg/dL Urine Sodium (30-90) mmol/L Influenza Type A Ag (NEGATIVE) Influenza Type B Ag (NEGATIVE) RSV (PCR) (NEGATIVE) SARS-CoV-2 (PCR) (NEGATIVE) 09/21/23 09/21/23 09/21/23 Range/Units 21:43 21:43 21:43 WBC (4.23-9.07) x10^3/uL RBC (4.63-6.08) x10^6/uL Hgb (13.7-17.5) g/dL Hct (40.1-51.0) % MCV (79.0-92.2) fL MCH (25.7-32.2) pg MCHC (32.3-36.5) g/dL RDW (11.6-14.4) % Plt Count (163-337) x10^3/uL MPV (9.4-12.4) fL Gran % (34.0-67.9) % Immature Gran % (Auto) (0.001-0.429) % Nucleat RBC Rel Count (0.00-0.2) % Eos # (Auto) (0.04-0.54) x10^3/uL Immature Gran # (Auto) (0.001-0.031) x10^3u/L Absolute Lymphs (auto) (1.32-3.57) x10^3/uL Absolute Monos (auto) (0.30-0.82) x10^3/uL Absolute Nucleated RBC (0.00-0.012) x10^3u/L Lymphocytes % (21.8-53.1) % Monocytes % (5.3-12.2) % Eosinophils % (0.8-7.0) % Basophils % (0.2-1.2) % Absolute Granulocytes (1.78-5.38) x10^3/uL Basophils # (0.01-0.08) x10^3/uL Sodium 137 (135-145) mmol/L Potassium 4.3 (3.5-5.1) mmol/L Chloride 97 L (98-107) mmol/L Carbon Dioxide 27 (22-30) mmol/L Anion Gap 18.0 H (5-15) MEQ/L BUN 27 H (9-20) mg/dL Creatinine 0.94 (0.66-1.25) mg/dL Estimated GFR 96.3 ML/MIN Glucose 423 H (74-106) mg/dL POC Glucometer (74 to 106) mg/dL Lactic Acid (0.4-2.0) Calcium 10.4 H (8.4-10.2) mg/dL Total Bilirubin 0.50 (0.2-1.3) mg/dL AST 22 (17-59) U/L ALT 25 (0-50) U/L Alkaline Phosphatase 104 (38-126) U/L Troponin I < 0.012 (0.000-0.033) ng/mL Serum Total Protein 7.3 (6.3-8.2) g/dL Albumin 4.3 (3.5-5.0) g/dL Lipase 182 (23-300) U/L Urine Color (Yellow) Urine Appearance (Clear) Urine pH (4.6-8.0) Ur Specific [place] (1.005-1.030) Urine Protein (Negative) Urine Glucose (UA) (Negative) mg/dL Urine Ketones (Negative) Urine Blood (Negative) Urine Nitrite (Negative) Urine Bilirubin (Negative) Urine Urobilinogen (0.2) mg/dL Ur Leukocyte Esterase (Negative) U Hyaline Cast (Auto) (0-2) /LPF Urine Microscopic RBC (0-5) /HPF Urine Microscopic WBC (0-5) /HPF Ur Epithelial Cells (None Seen) /HPF Urine Bacteria (None Seen) /HPF Urine Culture Reflexed (NO) Ur Random Creatinine MG/DL U Random Total Protein (0-12) mg/dL Urine Sodium (30-90) mmol/L Influenza Type A Ag NEGATIVE (NEGATIVE) Influenza Type B Ag NEGATIVE (NEGATIVE) RSV (PCR) NEGATIVE (NEGATIVE) SARS-CoV-2 (PCR) NEGATIVE (NEGATIVE) 09/21/23 09/21/23 09/22/23 Range/Units 22:50 23:11 00:00 WBC (4.23-9.07) x10^3/uL RBC (4.63-6.08) x10^6/uL Hgb (13.7-17.5) g/dL Hct (40.1-51.0) % MCV (79.0-92.2) fL MCH (25.7-32.2) pg MCHC (32.3-36.5) g/dL RDW (11.6-14.4) % Plt Count (163-337) x10^3/uL MPV (9.4-12.4) fL Gran % (34.0-67.9) % Immature Gran % (Auto) (0.001-0.429) % Nucleat RBC Rel Count (0.00-0.2) % Eos # (Auto) (0.04-0.54) x10^3/uL Immature Gran # (Auto) (0.001-0.031) x10^3u/L Absolute Lymphs (auto) (1.32-3.57) x10^3/uL Absolute Monos (auto) (0.30-0.82) x10^3/uL Absolute Nucleated RBC (0.00-0.012) x10^3u/L Lymphocytes % (21.8-53.1) % Monocytes % (5.3-12.2) % Eosinophils % (0.8-7.0) % Basophils % (0.2-1.2) % Absolute Granulocytes (1.78-5.38) x10^3/uL Basophils # (0.01-0.08) x10^3/uL Sodium (135-145) mmol/L Potassium (3.5-5.1) mmol/L Chloride (98-107) mmol/L Carbon Dioxide (22-30) mmol/L Anion Gap (5-15) MEQ/L BUN (9-20) mg/dL Creatinine (0.66-1.25) mg/dL Estimated GFR ML/MIN Glucose (74-106) mg/dL POC Glucometer 337 H (74 to 106) mg/dL Lactic Acid (0.4-2.0) Calcium (8.4-10.2) mg/dL Total Bilirubin (0.2-1.3) mg/dL AST (17-59) U/L ALT (0-50) U/L Alkaline Phosphatase (38-126) U/L Troponin I (0.000-0.033) ng/mL Serum Total Protein (6.3-8.2) g/dL Albumin (3.5-5.0) g/dL Lipase (23-300) U/L Urine Color Yellow (Yellow) Urine Appearance Clear (Clear) Urine pH 7.0 (4.6-8.0) Ur Specific [place] 1.025 (1.005-1.030) Urine Protein >=1000 A (Negative) Urine Glucose (UA) >=1000 A (Negative) mg/dL Urine Ketones 15 A (Negative) Urine Blood Moderate A (Negative) Urine Nitrite Negative (Negative) Urine Bilirubin Negative (Negative) Urine Urobilinogen 0.2 (0.2) mg/dL Ur Leukocyte Esterase Negative (Negative) U Hyaline Cast (Auto) NONE SEEN (0-2) /LPF Urine Microscopic RBC 11-20 A (0-5) /HPF Urine Microscopic WBC 0-2 (0-5) /HPF Ur Epithelial Cells None Seen (None Seen) /HPF Urine Bacteria None Seen (None Seen) /HPF Urine Culture Reflexed YES (NO) Ur Random Creatinine 41.6 MG/DL U Random Total Protein 886 H (0-12) mg/dL Urine Sodium 47 (30-90) mmol/L Influenza Type A Ag (NEGATIVE) Influenza Type B Ag (NEGATIVE) RSV (PCR) (NEGATIVE) SARS-CoV-2 (PCR) (NEGATIVE) 09/22/23 09/22/23 09/22/23 Range/Units 02:28 03:15 06:10 WBC (4.23-9.07) x10^3/uL RBC (4.63-6.08) x10^6/uL Hgb (13.7-17.5) g/dL Hct (40.1-51.0) % MCV (79.0-92.2) fL MCH (25.7-32.2) pg MCHC (32.3-36.5) g/dL RDW (11.6-14.4) % Plt Count (163-337) x10^3/uL MPV (9.4-12.4) fL Gran % (34.0-67.9) % Immature Gran % (Auto) (0.001-0.429) % Nucleat RBC Rel Count (0.00-0.2) % Eos # (Auto) (0.04-0.54) x10^3/uL Immature Gran # (Auto) (0.001-0.031) x10^3u/L Absolute Lymphs (auto) (1.32-3.57) x10^3/uL Absolute Monos (auto) (0.30-0.82) x10^3/uL Absolute Nucleated RBC (0.00-0.012) x10^3u/L Lymphocytes % (21.8-53.1) % Monocytes % (5.3-12.2) % Eosinophils % (0.8-7.0) % Basophils % (0.2-1.2) % Absolute Granulocytes (1.78-5.38) x10^3/uL Basophils # (0.01-0.08) x10^3/uL Sodium (135-145) mmol/L Potassium (3.5-5.1) mmol/L Chloride (98-107) mmol/L Carbon Dioxide (22-30) mmol/L Anion Gap (5-15) MEQ/L BUN (9-20) mg/dL Creatinine (0.66-1.25) mg/dL Estimated GFR ML/MIN Glucose (74-106) mg/dL POC Glucometer 347 H (74 to 106) mg/dL Lactic Acid (0.4-2.0) Calcium (8.4-10.2) mg/dL Total Bilirubin (0.2-1.3) mg/dL AST (17-59) U/L ALT (0-50) U/L Alkaline Phosphatase (38-126) U/L Troponin I < 0.012 0.015 (0.000-0.033) ng/mL Serum Total Protein (6.3-8.2) g/dL Albumin (3.5-5.0) g/dL Lipase (23-300) U/L Urine Color (Yellow) Urine Appearance (Clear) Urine pH (4.6-8.0) Ur Specific [place] (1.005-1.030) Urine Protein (Negative) Urine Glucose (UA) (Negative) mg/dL Urine Ketones (Negative) Urine Blood (Negative) Urine Nitrite (Negative) Urine Bilirubin (Negative) Urine Urobilinogen (0.2) mg/dL Ur Leukocyte Esterase (Negative) U Hyaline Cast (Auto) (0-2) /LPF Urine Microscopic RBC (0-5) /HPF Urine Microscopic WBC (0-5) /HPF Ur Epithelial Cells (None Seen) /HPF Urine Bacteria (None Seen) /HPF Urine Culture Reflexed (NO) Ur Random Creatinine MG/DL U Random Total Protein (0-12) mg/dL Urine Sodium (30-90) mmol/L Influenza Type A Ag (NEGATIVE) Influenza Type B Ag (NEGATIVE) RSV (PCR) (NEGATIVE) SARS-CoV-2 (PCR) (NEGATIVE) 09/22/23 09/22/23 09/22/23 Range/Units 06:10 06:10 06:37 WBC 12.2 H (4.23-9.07) x10^3/uL RBC 4.58 L (4.63-6.08) x10^6/uL Hgb 13.5 L (13.7-17.5) g/dL Hct 40.5 (40.1-51.0) % MCV 88.4 (79.0-92.2) fL MCH 29.5 (25.7-32.2) pg MCHC 33.3 (32.3-36.5) g/dL RDW 12.8 (11.6-14.4) % Plt Count 314 (163-337) x10^3/uL MPV 10.4 (9.4-12.4) fL Gran % 69.4 H (34.0-67.9) % Immature Gran % (Auto) 0.7 H (0.001-0.429) % Nucleat RBC Rel Count 0.0 (0.00-0.2) % Eos # (Auto) 0.02 L (0.04-0.54) x10^3/uL Immature Gran # (Auto) 0.09 H (0.001-0.031) x10^3u/L Absolute Lymphs (auto) 2.16 (1.32-3.57) x10^3/uL Absolute Monos (auto) 1.40 H (0.30-0.82) x10^3/uL Absolute Nucleated RBC 0.00 (0.00-0.012) x10^3u/L Lymphocytes % 17.7 L (21.8-53.1) % Monocytes % 11.5 (5.3-12.2) % Eosinophils % 0.2 L (0.8-7.0) % Basophils % 0.5 (0.2-1.2) % Absolute Granulocytes 8.47 H (1.78-5.38) x10^3/uL Basophils # 0.06 (0.01-0.08) x10^3/uL Sodium 138 (135-145) mmol/L Potassium 3.7 (3.5-5.1) mmol/L Chloride 101 (98-107) mmol/L Carbon Dioxide 27 (22-30) mmol/L Anion Gap 13.9 (5-15) MEQ/L BUN 24 H (9-20) mg/dL Creatinine 0.93 (0.66-1.25) mg/dL Estimated GFR 97.6 ML/MIN Glucose 270 H (74-106) mg/dL POC Glucometer (74 to 106) mg/dL Lactic Acid 3.2 H (0.4-2.0) Calcium 9.6 (8.4-10.2) mg/dL Total Bilirubin 0.40 (0.2-1.3) mg/dL AST 29 (17-59) U/L ALT 34 (0-50) U/L Alkaline Phosphatase 83 (38-126) U/L Troponin I (0.000-0.033) ng/mL Serum Total Protein 7.1 (6.3-8.2) g/dL Albumin 4.0 (3.5-5.0) g/dL Lipase (23-300) U/L Urine Color (Yellow) Urine Appearance (Clear) Urine pH (4.6-8.0) Ur Specific [place] (1.005-1.030) Urine Protein (Negative) Urine Glucose (UA) (Negative) mg/dL Urine Ketones (Negative) Urine Blood (Negative) Urine Nitrite (Negative) Urine Bilirubin (Negative) Urine Urobilinogen (0.2) mg/dL Ur Leukocyte Esterase (Negative) U Hyaline Cast (Auto) (0-2) /LPF Urine Microscopic RBC (0-5) /HPF Urine Microscopic WBC (0-5) /HPF Ur Epithelial Cells (None Seen) /HPF Urine Bacteria (None Seen) /HPF Urine Culture Reflexed (NO) Ur Random Creatinine MG/DL U Random Total Protein (0-12) mg/dL Urine Sodium (30-90) mmol/L Influenza Type A Ag (NEGATIVE) Influenza Type B Ag (NEGATIVE) RSV (PCR) (NEGATIVE) SARS-CoV-2 (PCR) (NEGATIVE) 09/22/23 Range/Units 07:41 WBC (4.23-9.07) x10^3/uL RBC (4.63-6.08) x10^6/uL Hgb (13.7-17.5) g/dL Hct (40.1-51.0) % MCV (79.0-92.2) fL MCH (25.7-32.2) pg MCHC (32.3-36.5) g/dL RDW (11.6-14.4) % Plt Count (163-337) x10^3/uL MPV (9.4-12.4) fL Gran % (34.0-67.9) % Immature Gran % (Auto) (0.001-0.429) % Nucleat RBC Rel Count (0.00-0.2) % Eos # (Auto) (0.04-0.54) x10^3/uL Immature Gran # (Auto) (0.001-0.031) x10^3u/L Absolute Lymphs (auto) (1.32-3.57) x10^3/uL Absolute Monos (auto) (0.30-0.82) x10^3/uL Absolute Nucleated RBC (0.00-0.012) x10^3u/L Lymphocytes % (21.8-53.1) % Monocytes % (5.3-12.2) % Eosinophils % (0.8-7.0) % Basophils % (0.2-1.2) % Absolute Granulocytes (1.78-5.38) x10^3/uL Basophils # (0.01-0.08) x10^3/uL Sodium (135-145) mmol/L Potassium (3.5-5.1) mmol/L Chloride (98-107) mmol/L Carbon Dioxide (22-30) mmol/L Anion Gap (5-15) MEQ/L BUN (9-20) mg/dL Creatinine (0.66-1.25) mg/dL Estimated GFR ML/MIN Glucose (74-106) mg/dL POC Glucometer 247 H (74 to 106) mg/dL Lactic Acid (0.4-2.0) Calcium (8.4-10.2) mg/dL Total Bilirubin (0.2-1.3) mg/dL AST (17-59) U/L ALT (0-50) U/L Alkaline Phosphatase (38-126) U/L Troponin I (0.000-0.033) ng/mL Serum Total Protein (6.3-8.2) g/dL Albumin (3.5-5.0) g/dL Lipase (23-300) U/L Urine Color (Yellow) Urine Appearance (Clear) Urine pH (4.6-8.0) Ur Specific [place] (1.005-1.030) Urine Protein (Negative) Urine Glucose (UA) (Negative) mg/dL Urine Ketones (Negative) Urine Blood (Negative) Urine Nitrite (Negative) Urine Bilirubin (Negative) Urine Urobilinogen (0.2) mg/dL Ur Leukocyte Esterase (Negative) U Hyaline Cast (Auto) (0-2) /LPF Urine Microscopic RBC (0-5) /HPF Urine Microscopic WBC (0-5) /HPF Ur Epithelial Cells (None Seen) /HPF Urine Bacteria (None Seen) /HPF Urine Culture Reflexed (NO) Ur Random Creatinine MG/DL U Random Total Protein (0-12) mg/dL Urine Sodium (30-90) mmol/L Influenza Type A Ag (NEGATIVE) Influenza Type B Ag (NEGATIVE) RSV (PCR) (NEGATIVE) SARS-CoV-2 (PCR) (NEGATIVE) Radiology Exams: Radiology Procedures Category Date Time Status ABDOMEN AND PELVIS W/0 CONTRAS [CT] Stat Exams 09/21/23 21:08 Completed Assessment/Plan (1) Intractable vomiting Current Visit: Yes Status: Acute Assessment & Plan: - PRN meds IV and PO - Sxs resolved today - CT abd/ pelvis: IMPRESSION: 1. Bilateral perinephric fat stranding 2. No other abnormality seen in the present study Code(s): R11.10 - VOMITING, UNSPECIFIED (2) Lactic acid acidosis Current Visit: Yes Status: Acute Assessment & Plan: - LA on admission 2.4- gave 2L NS fluid boluses in ER - LA this AM was 3.2 - 1 L NS fluid bolus ordered. - will recheck LA @ 1600 - 2:2 N/V last night - diabetic - IVF - UDS pending Code(s): E87.20 - ACIDOSIS, UNSPECIFIED (3) Headache Current Visit: Yes Status: Acute Assessment & Plan: - 2:2 N/V last night? - tylenol for pain - IVF - did not get amitriiptyline last night Code(s): R51.9 - HEADACHE, UNSPECIFIED (4) Essential (primary) hypertension Current Visit: Yes Status: Acute Assessment & Plan: - restart home meds- monitor Code(s): I10 - ESSENTIAL (PRIMARY) HYPERTENSION (5) Type 2 diabetes mellitus with diabetic chronic kidney disease Current Visit: Yes Status: Acute Assessment & Plan: - accuchecks ac/hs - Lantus 45 units QAM. moderate dose s/s with meals- consider high dose s/s vs humalog with meals - A1C pending Code(s): E11.22 - TYPE 2 DIABETES MELLITUS W DIABETIC CHRONIC KIDNEY DISEASE (6) Tachycardia Current Visit: Yes Status: Acute Assessment & Plan: - tele - 2:2 N/V - UDS pending - IVF Code(s): R00.0 - TACHYCARDIA, UNSPECIFIED (7) Dehydration Current Visit: Yes Status: Resolved Assessment & Plan: - anion gap 13.9 today - IVF Code(s): E86.0 - DEHYDRATION (8) Morbid obesity with BMI of 40.0-44.9, adult Current Visit: Yes Status: Acute Assessment & Plan: - Recommend ADA diet and exercise Code(s): E66.01 - MORBID (SEVERE) OBESITY DUE TO EXCESS CALORIES; Z68.41 - BODY MASS INDEX [BMI] 40.0-44.9, ADULT (9) Smoker Current Visit: Yes Status: Chronic Assessment & Plan: - daily smoker - advised cessation - nicotine patch Code(s): F17.200 - NICOTINE DEPENDENCE, UNSPECIFIED, UNCOMPLICATED (10) Marijuana smoker Current Visit: Yes Status: Acute Assessment & Plan: - advised cessation - may be hyperemesis syndrome 2:2 THC - warm showers and nausea meds PRN Code(s): F12.90 - CANNABIS USE, UNSPECIFIED, UNCOMPLICATED (11) Anxiety and depression Current Visit: Yes Status: Acute Assessment & Plan: - Continue home meds VTE: Lovenox PPI: Protonix Next of KIN: Juan Jose Lao [phone] D/C plan: tomorrow Code status: Full Code(s): F41.9 - ANXIETY DISORDER, UNSPECIFIED; F32.A - DEPRESSION, UNSPECIFIED
[2023-09-22] MEDS ORDERED: MEDICATION INTERVENTION MC SCH (11:30)
[2023-09-22] MEDS: ECOTRIN 81 MG PO SCH (11:58)
[2023-09-22] MEDS: zyPREXA 5MG TABLET PO SCH (11:58)
[2023-09-22] MEDS: FOLATE 1 MG PO SCH (11:58)
[2023-09-22] MEDS: PLAVIX Tablet PO SCH (11:59)
[2023-09-22] MEDS: ELAVIL 10 MG PO SCH (11:59)
[2023-09-22] MEDS: Glucophage 500 MG PO SCH (11:59)
[2023-09-22] MEDS: Zetia 10 MG PO SCH (11:59)
[2023-09-22] MEDS: Flomax 0.4 MG PO SCH (11:59)
[2023-09-22] MEDS: Nicoderm CQ 21 MG TOP SCH (11:59)
[2023-09-22 12:08] LABS: Hematocrit 38.1 % (40.1-51.0); Hemoglobin 12.5 g/dL (13.7-17.5); Mean Cell Volume 90.5 fL (79.0-92.2); Mean Corpuscular Hemoglobin 29.7 pg (25.7-32.2); Mean Corpuscular Hgb Concent. 32.8 g/dL (32.3-36.5); Platelet Count 276 x10^3/uL (163-337); Red Blood Count 4.21 x10^6/uL (4.63-6.08); Red Cell Distribution Width 12.8 % (11.6-14.4); White Blood Count 13.6 x10^3/uL (4.23-9.07)
[2023-09-22 12:25] LABS: ANION GAP 11.1 MEQ/L (5-15); Calcium 8.8 mg/dL (8.4-10.2); Creatinine 1 0.87 mg/dL (0.66-1.25); EST GLOMERULAR FILTRATION RATE 102.5 ML/MIN; PREALBUMIN 26.79 mg/dL (17.6-36.0); Potassium 3.5 mmol/L (3.5-5.1)
[2023-09-22 12:32] LABS: Amphetamine,Urine NEGATIVE (NEGATIVE); Barbiturate,Urine NEGATIVE (NEGATIVE); Cocaine,Urine NEGATIVE (NEGATIVE); Methadone,Urine NEGATIVE (NEGATIVE); Opiate,Urine NEGATIVE (NEGATIVE); PCP,Urine NEGATIVE (NEGATIVE); THC,Urine POSITIVE (NEGATIVE)
[2023-09-22] MEDS: PROZAC 10 MG PO SCH (13:10)
[2023-09-22] MEDS: ZOCOR 20MG PO SCH (20:40)
[2023-09-22] MEDS: NEURONTIN PO SCH (21:42)
[2023-09-22] MEDS ORDERED: NON-FORMULARY ITEM (Pravastatin Sodium [Pravastatin Sodium] 20 MG Tablet) PO SCH (22:00)
[2023-09-22] MEDS: Zofran 4 MG/2 ML VIAL IV PRN (22:35)
[2023-09-23 04:43] LABS: Hematocrit 40.1 % (40.1-51.0); Hemoglobin 12.7 g/dL (13.7-17.5); Mean Cell Volume 91.3 fL (79.0-92.2); Mean Corpuscular Hemoglobin 28.9 pg (25.7-32.2); Mean Corpuscular Hgb Concent. 31.7 g/dL (32.3-36.5); Platelet Count 259 x10^3/uL (163-337); Red Blood Count 4.39 x10^6/uL (4.63-6.08); Red Cell Distribution Width 12.8 % (11.6-14.4)
[2023-09-23 05:03] LABS: ALBUMIN 3.4 g/dL (3.5-5.0); ANION GAP 8.8 MEQ/L (5-15); BILIRUBIN,TOTAL 0.4 mg/dL (0.2-1.3); Calcium 8.9 mg/dL (8.4-10.2); Creatinine 1 0.98 mg/dL (0.66-1.25); EST GLOMERULAR FILTRATION RATE 91.6 ML/MIN; Potassium 3.4 mmol/L (3.5-5.1); Total Protein 6.2 g/dL (6.3-8.2)
--- NOTE | 2023-09-23 05:33 | PCM.NOTE ---
Date and Time: 09/23/23527 Subjective Assessment: Mr. Rush is a 52 year old male with a pmhx of HTN, HLD, and diabetes admitted 09/21/23 with hyperglycemia and associated nausea and vomiting. Patient also noted with lactic acidosis- likely type B secondary to hyperglycemia. CT abd/ pelvis negative for acute etiology. Blood glucose levels are now stable. 09/23/23: Met with patient bedside. Endorses multiple diarrheal episodes overnight with nausea. Not able to tolerate much of a diet. Urine culture with skin contaminant. Will collect stools for cdiff and urinalysis. <PÉREZ TOMPKINS - Last Filed: 09/23/23 11:34> Date and Time: 09/23/232102 <SONDRA FLEMING - Last Filed: 09/23/23 21:05> - Review of Systems Constitutional: Fatigue, Weakness Eyes: No Symptoms Ears, Nose, & Throat: No Symptoms Respiratory: No Symptoms Cardiac: No Symptoms Abdominal/Gastrointestinal: Nausea, Diarrhea Genitourinary Symptoms: No Symptoms Musculoskeletal: No Symptoms Skin: No Symptoms Neurological: No Symptoms Psychological: No Symptoms Endocrine: No Symptoms Hematologic/Lymphatic: No Symptoms Immunological/Allergic: No Symptoms <PÉREZ TOMPKINS - Last Filed: 09/23/23 11:34> Objective Exam General Appearance: no apparent distress Neurologic Exam: alert, oriented x 3, cooperative Skin Exam: normal color Eye Exam: PERRL Ears, Nose, Throat Exam: normal ENT inspection Neck Exam: normal inspection Respiratory Exam: normal breath sounds, lungs clear Cardiovascular Exam: regular rate/rhythm, normal heart sounds Gastrointestinal/Abdomen Exam: soft, normal bowel sounds Extremity Exam: normal inspection Back Exam: normal inspection Male Genitalia Exam: deferred Rectal Exam: deferred <PÉREZ TOMPKINS - Last Filed: 09/23/23 11:34> Objective Data Vital Signs: Vital Signs - 24 hr Temp Pulse Resp BP BP Pulse Ox 09/23/23 04:00 99.1 F 77 19 132/78 96 09/22/23 23:52 98.7 F 81 19 126/74 97 09/22/23 21:03 96 09/22/23 19:44 98.9 F 91 H 16 175/95 96 09/22/23 16:33 95 09/22/23 16:00 98.0 F 84 16 127/70 95 09/22/23 11:58 97.7 F 92 H 18 163/75 95 09/22/23 07:12 98.2 F 104 H 16 159/97 94 L 09/22/23 07:04 95 09/22/23 06:04 212/114 95 Pain Assessment - Last Documented Pain Intensity 0 Intake and Output: Intake & Output 09/20/23 09/21/23 09/22/23 09/23/23 11:59 11:59 11:59 11:59 Intake Total 1543 4642 Output Total 1225 650 Balance 318 3992 Weight 139.2 kg Lab Results: Lab Results-Last 24 Hours 09/22/23 09/22/23 09/22/23 Range/Units 02:00 06:10 06:10 WBC 12.2 H (4.23-9.07) x10^3/uL RBC 4.58 L (4.63-6.08) x10^6/uL Hgb 13.5 L (13.7-17.5) g/dL Hct 40.5 (40.1-51.0) % MCV 88.4 (79.0-92.2) fL MCH 29.5 (25.7-32.2) pg MCHC 33.3 (32.3-36.5) g/dL RDW 12.8 (11.6-14.4) % Plt Count 314 (163-337) x10^3/uL MPV 10.4 (9.4-12.4) fL Gran % 69.4 H (34.0-67.9) % Immature Gran % (Auto) 0.7 H (0.001-0.429) % Nucleat RBC Rel Count 0.0 (0.00-0.2) % Eos # (Auto) 0.02 L (0.04-0.54) x10^3/uL Immature Gran # (Auto) 0.09 H (0.001-0.031) x10^3u/L Absolute Lymphs (auto) 2.16 (1.32-3.57) x10^3/uL Absolute Monos (auto) 1.40 H (0.30-0.82) x10^3/uL Absolute Nucleated RBC 0.00 (0.00-0.012) x10^3u/L Lymphocytes % 17.7 L (21.8-53.1) % Monocytes % 11.5 (5.3-12.2) % Eosinophils % 0.2 L (0.8-7.0) % Basophils % 0.5 (0.2-1.2) % Absolute Granulocytes 8.47 H (1.78-5.38) x10^3/uL Basophils # 0.06 (0.01-0.08) x10^3/uL Sodium (135-145) mmol/L Potassium (3.5-5.1) mmol/L Chloride (98-107) mmol/L Carbon Dioxide (22-30) mmol/L Anion Gap (5-15) MEQ/L BUN (9-20) mg/dL Creatinine (0.66-1.25) mg/dL Estimated GFR ML/MIN Glucose (74-106) mg/dL POC Glucometer (74 to 106) mg/dL Lactic Acid (0.4-2.0) Calcium (8.4-10.2) mg/dL Total Bilirubin (0.2-1.3) mg/dL AST (17-59) U/L ALT (0-50) U/L Alkaline Phosphatase (38-126) U/L Troponin I 0.015 (0.000-0.033) ng/mL Serum Total Protein (6.3-8.2) g/dL Albumin (3.5-5.0) g/dL Prealbumin (17.6-36.0) mg/dL Urine Opiates Level NEGATIVE (NEGATIVE) Ur Methadone NEGATIVE (NEGATIVE) Urine Barbiturates NEGATIVE (NEGATIVE) Ur Phencyclidine (PCP) NEGATIVE (NEGATIVE) Urine Amphetamine NEGATIVE (NEGATIVE) Urine Cocaine NEGATIVE (NEGATIVE) Urine Marijuana (THC) POSITIVE A (NEGATIVE) 09/22/23 09/22/23 09/22/23 Range/Units 06:10 06:10 06:10 WBC 13.6 H (4.23-9.07) x10^3/uL RBC 4.21 L (4.63-6.08) x10^6/uL Hgb 12.5 L (13.7-17.5) g/dL Hct 38.1 L (40.1-51.0) % MCV 90.5 (79.0-92.2) fL MCH 29.7 (25.7-32.2) pg MCHC 32.8 (32.3-36.5) g/dL RDW 12.8 (11.6-14.4) % Plt Count 276 (163-337) x10^3/uL MPV 10.0 (9.4-12.4) fL Gran % (34.0-67.9) % Immature Gran % (Auto) (0.001-0.429) % Nucleat RBC Rel Count (0.00-0.2) % Eos # (Auto) (0.04-0.54) x10^3/uL Immature Gran # (Auto) (0.001-0.031) x10^3u/L Absolute Lymphs (auto) (1.32-3.57) x10^3/uL Absolute Monos (auto) (0.30-0.82) x10^3/uL Absolute Nucleated RBC (0.00-0.012) x10^3u/L Lymphocytes % (21.8-53.1) % Monocytes % (5.3-12.2) % Eosinophils % (0.8-7.0) % Basophils % (0.2-1.2) % Absolute Granulocytes (1.78-5.38) x10^3/uL Basophils # (0.01-0.08) x10^3/uL Sodium 138 135 (135-145) mmol/L Potassium 3.7 3.5 (3.5-5.1) mmol/L Chloride 101 100 (98-107) mmol/L Carbon Dioxide 27 27 (22-30) mmol/L Anion Gap 13.9 11.1 (5-15) MEQ/L BUN 24 H 20 (9-20) mg/dL Creatinine 0.93 0.87 (0.66-1.25) mg/dL Estimated GFR 97.6 102.5 ML/MIN Glucose 270 H 253 H (74-106) mg/dL POC Glucometer (74 to 106) mg/dL Lactic Acid (0.4-2.0) Calcium 9.6 8.8 (8.4-10.2) mg/dL Total Bilirubin 0.40 (0.2-1.3) mg/dL AST 29 (17-59) U/L ALT 34 (0-50) U/L Alkaline Phosphatase 83 (38-126) U/L Troponin I (0.000-0.033) ng/mL Serum Total Protein 7.1 (6.3-8.2) g/dL Albumin 4.0 (3.5-5.0) g/dL Prealbumin 26.79 (17.6-36.0) mg/dL Urine Opiates Level (NEGATIVE) Ur Methadone (NEGATIVE) Urine Barbiturates (NEGATIVE) Ur Phencyclidine (PCP) (NEGATIVE) Urine Amphetamine (NEGATIVE) Urine Cocaine (NEGATIVE) Urine Marijuana (THC) (NEGATIVE) 09/22/23 09/22/23 09/22/23 Range/Units 06:37 07:41 11:42 WBC (4.23-9.07) x10^3/uL RBC (4.63-6.08) x10^6/uL Hgb (13.7-17.5) g/dL Hct (40.1-51.0) % MCV (79.0-92.2) fL MCH (25.7-32.2) pg MCHC (32.3-36.5) g/dL RDW (11.6-14.4) % Plt Count (163-337) x10^3/uL MPV (9.4-12.4) fL Gran % (34.0-67.9) % Immature Gran % (Auto) (0.001-0.429) % Nucleat RBC Rel Count (0.00-0.2) % Eos # (Auto) (0.04-0.54) x10^3/uL Immature Gran # (Auto) (0.001-0.031) x10^3u/L Absolute Lymphs (auto) (1.32-3.57) x10^3/uL Absolute Monos (auto) (0.30-0.82) x10^3/uL Absolute Nucleated RBC (0.00-0.012) x10^3u/L Lymphocytes % (21.8-53.1) % Monocytes % (5.3-12.2) % Eosinophils % (0.8-7.0) % Basophils % (0.2-1.2) % Absolute Granulocytes (1.78-5.38) x10^3/uL Basophils # (0.01-0.08) x10^3/uL Sodium (135-145) mmol/L Potassium (3.5-5.1) mmol/L Chloride (98-107) mmol/L Carbon Dioxide (22-30) mmol/L Anion Gap (5-15) MEQ/L BUN (9-20) mg/dL Creatinine (0.66-1.25) mg/dL Estimated GFR ML/MIN Glucose (74-106) mg/dL POC Glucometer 247 H 274 H (74 to 106) mg/dL Lactic Acid 3.2 H (0.4-2.0) Calcium (8.4-10.2) mg/dL Total Bilirubin (0.2-1.3) mg/dL AST (17-59) U/L ALT (0-50) U/L Alkaline Phosphatase (38-126) U/L Troponin I (0.000-0.033) ng/mL Serum Total Protein (6.3-8.2) g/dL Albumin (3.5-5.0) g/dL Prealbumin (17.6-36.0) mg/dL Urine Opiates Level (NEGATIVE) Ur Methadone (NEGATIVE) Urine Barbiturates (NEGATIVE) Ur Phencyclidine (PCP) (NEGATIVE) Urine Amphetamine (NEGATIVE) Urine Cocaine (NEGATIVE) Urine Marijuana (THC) (NEGATIVE) 09/22/23 09/22/23 09/22/23 Range/Units 15:44 16:22 20:31 WBC (4.23-9.07) x10^3/uL RBC (4.63-6.08) x10^6/uL Hgb (13.7-17.5) g/dL Hct (40.1-51.0) % MCV (79.0-92.2) fL MCH (25.7-32.2) pg MCHC (32.3-36.5) g/dL RDW (11.6-14.4) % Plt Count (163-337) x10^3/uL MPV (9.4-12.4) fL Gran % (34.0-67.9) % Immature Gran % (Auto) (0.001-0.429) % Nucleat RBC Rel Count (0.00-0.2) % Eos # (Auto) (0.04-0.54) x10^3/uL Immature Gran # (Auto) (0.001-0.031) x10^3u/L Absolute Lymphs (auto) (1.32-3.57) x10^3/uL Absolute Monos (auto) (0.30-0.82) x10^3/uL Absolute Nucleated RBC (0.00-0.012) x10^3u/L Lymphocytes % (21.8-53.1) % Monocytes % (5.3-12.2) % Eosinophils % (0.8-7.0) % Basophils % (0.2-1.2) % Absolute Granulocytes (1.78-5.38) x10^3/uL Basophils # (0.01-0.08) x10^3/uL Sodium (135-145) mmol/L Potassium (3.5-5.1) mmol/L Chloride (98-107) mmol/L Carbon Dioxide (22-30) mmol/L Anion Gap (5-15) MEQ/L BUN (9-20) mg/dL Creatinine (0.66-1.25) mg/dL Estimated GFR ML/MIN Glucose (74-106) mg/dL POC Glucometer 110 H 184 H (74 to 106) mg/dL Lactic Acid 1.6 (0.4-2.0) Calcium (8.4-10.2) mg/dL Total Bilirubin (0.2-1.3) mg/dL AST (17-59) U/L ALT (0-50) U/L Alkaline Phosphatase (38-126) U/L Troponin I (0.000-0.033) ng/mL Serum Total Protein (6.3-8.2) g/dL Albumin (3.5-5.0) g/dL Prealbumin (17.6-36.0) mg/dL Urine Opiates Level (NEGATIVE) Ur Methadone (NEGATIVE) Urine Barbiturates (NEGATIVE) Ur Phencyclidine (PCP) (NEGATIVE) Urine Amphetamine (NEGATIVE) Urine Cocaine (NEGATIVE) Urine Marijuana (THC) (NEGATIVE) 09/23/23 Range/Units 04:37 WBC 12.0 H (4.23-9.07) x10^3/uL RBC 4.39 L (4.63-6.08) x10^6/uL Hgb 12.7 L (13.7-17.5) g/dL Hct 40.1 (40.1-51.0) % MCV 91.3 (79.0-92.2) fL MCH 28.9 (25.7-32.2) pg MCHC 31.7 L (32.3-36.5) g/dL RDW 12.8 (11.6-14.4) % Plt Count 259 (163-337) x10^3/uL MPV 10.0 (9.4-12.4) fL Gran % (34.0-67.9) % Immature Gran % (Auto) (0.001-0.429) % Nucleat RBC Rel Count (0.00-0.2) % Eos # (Auto) (0.04-0.54) x10^3/uL Immature Gran # (Auto) (0.001-0.031) x10^3u/L Absolute Lymphs (auto) (1.32-3.57) x10^3/uL Absolute Monos (auto) (0.30-0.82) x10^3/uL Absolute Nucleated RBC (0.00-0.012) x10^3u/L Lymphocytes % (21.8-53.1) % Monocytes % (5.3-12.2) % Eosinophils % (0.8-7.0) % Basophils % (0.2-1.2) % Absolute Granulocytes (1.78-5.38) x10^3/uL Basophils # (0.01-0.08) x10^3/uL Sodium (135-145) mmol/L Potassium (3.5-5.1) mmol/L Chloride (98-107) mmol/L Carbon Dioxide (22-30) mmol/L Anion Gap (5-15) MEQ/L BUN (9-20) mg/dL Creatinine (0.66-1.25) mg/dL Estimated GFR ML/MIN Glucose (74-106) mg/dL POC Glucometer (74 to 106) mg/dL Lactic Acid (0.4-2.0) Calcium (8.4-10.2) mg/dL Total Bilirubin (0.2-1.3) mg/dL AST (17-59) U/L ALT (0-50) U/L Alkaline Phosphatase (38-126) U/L Troponin I (0.000-0.033) ng/mL Serum Total Protein (6.3-8.2) g/dL Albumin (3.5-5.0) g/dL Prealbumin (17.6-36.0) mg/dL Urine Opiates Level (NEGATIVE) Ur Methadone (NEGATIVE) Urine Barbiturates (NEGATIVE) Ur Phencyclidine (PCP) (NEGATIVE) Urine Amphetamine (NEGATIVE) Urine Cocaine (NEGATIVE) Urine Marijuana (THC) (NEGATIVE) Radiology Exams: Radiology Procedures Category Date Time Status ABDOMEN AND PELVIS W/0 CONTRAS [CT] Stat Exams 09/21/23 21:08 Completed <PÉREZ TOMPKINS - Last Filed: 09/23/23 11:34> Vital Signs: Vital Signs - 24 hr Temp Pulse Resp BP Pulse Ox 09/23/23 18:54 97.3 F 76 16 128/73 97 09/23/23 18:42 90 L 09/23/23 16:00 97.7 F 72 20 108/65 90 L 09/23/23 11:58 97.7 F 68 18 168/74 94 L 09/23/23 08:00 99.2 F 82 20 130/73 94 L 09/23/23 07:10 96 09/23/23 04:00 99.1 F 77 19 132/78 96 09/22/23 23:52 98.7 F 81 19 126/74 97 Pain Assessment - Last Documented Pain Intensity 0 Intake and Output: Intake & Output 09/21/23 09/22/23 09/23/23 09/24/23 11:59 11:59 11:59 11:59 Intake Total 1543 5122 1403 Output Total 1225 1550 400 Balance 318 3572 1003 Weight 139.2 kg Lab Results: Lab Results-Last 24 Hours 09/23/23 09/23/23 09/23/23 Range/Units 04:37 04:37 04:37 WBC 12.0 H (4.23-9.07) x10^3/uL RBC 4.39 L (4.63-6.08) x10^6/uL Hgb 12.7 L (13.7-17.5) g/dL Hct 40.1 (40.1-51.0) % MCV 91.3 (79.0-92.2) fL MCH 28.9 (25.7-32.2) pg MCHC 31.7 L (32.3-36.5) g/dL RDW 12.8 (11.6-14.4) % Plt Count 259 (163-337) x10^3/uL MPV 10.0 (9.4-12.4) fL Sodium 135 (135-145) mmol/L Potassium 3.4 L (3.5-5.1) mmol/L Chloride 104 (98-107) mmol/L Carbon Dioxide 25 (22-30) mmol/L Anion Gap 8.8 (5-15) MEQ/L BUN 17 (9-20) mg/dL Creatinine 0.98 (0.66-1.25) mg/dL Estimated GFR 91.6 ML/MIN Glucose 175 H (74-106) mg/dL POC Glucometer (74 to 106) mg/dL Hemoglobin A1c 10.29 H (4.5-6.0) % Calcium 8.9 (8.4-10.2) mg/dL Total Bilirubin 0.40 (0.2-1.3) mg/dL AST 23 (17-59) U/L ALT 19 (0-50) U/L Alkaline Phosphatase 75 (38-126) U/L Serum Total Protein 6.2 L (6.3-8.2) g/dL Albumin 3.4 L (3.5-5.0) g/dL Urine Color (Yellow) Urine Appearance (Clear) Urine pH (4.6-8.0) Ur Specific [place] (1.005-1.030) Urine Protein (Negative) Urine Glucose (UA) (Negative) mg/dL Urine Ketones (Negative) Urine Blood (Negative) Urine Nitrite (Negative) Urine Bilirubin (Negative) Urine Urobilinogen (0.2) mg/dL Ur Leukocyte Esterase (Negative) U Hyaline Cast (Auto) (0-2) /LPF Urine Microscopic RBC (0-5) /HPF Urine Microscopic WBC (0-5) /HPF Ur Epithelial Cells (None Seen) /HPF Urine Bacteria (None Seen) /HPF Urine Culture Reflexed (NO) C. difficile Screen (NEGATIVE) C.difficile 027-NAP1-B1 (NEGATIVE) 08/05/24 08/05/24 08/05/24 Range/Units 06:39 11:06 11:32 WBC (4.23-9.07) x10^3/uL RBC (4.63-6.08) x10^6/uL Hgb (13.7-17.5) g/dL Hct (40.1-51.0) % MCV (79.0-92.2) fL MCH (25.7-32.2) pg MCHC (32.3-36.5) g/dL RDW (11.6-14.4) % Plt Count (163-337) x10^3/uL MPV (9.4-12.4) fL Sodium (135-145) mmol/L Potassium 3.9 (3.5-5.1) mmol/L Chloride (98-107) mmol/L Carbon Dioxide (22-30) mmol/L Anion Gap (5-15) MEQ/L BUN (9-20) mg/dL Creatinine (0.66-1.25) mg/dL Estimated GFR ML/MIN Glucose (74-106) mg/dL POC Glucometer 175 H 239 H (74 to 106) mg/dL Hemoglobin A1c (4.5-6.0) % Calcium (8.4-10.2) mg/dL Total Bilirubin (0.2-1.3) mg/dL AST (17-59) U/L ALT (0-50) U/L Alkaline Phosphatase (38-126) U/L Serum Total Protein (6.3-8.2) g/dL Albumin (3.5-5.0) g/dL Urine Color (Yellow) Urine Appearance (Clear) Urine pH (4.6-8.0) Ur Specific [place] (1.005-1.030) Urine Protein (Negative) Urine Glucose (UA) (Negative) mg/dL Urine Ketones (Negative) Urine Blood (Negative) Urine Nitrite (Negative) Urine Bilirubin (Negative) Urine Urobilinogen (0.2) mg/dL Ur Leukocyte Esterase (Negative) U Hyaline Cast (Auto) (0-2) /LPF Urine Microscopic RBC (0-5) /HPF Urine Microscopic WBC (0-5) /HPF Ur Epithelial Cells (None Seen) /HPF Urine Bacteria (None Seen) /HPF Urine Culture Reflexed (NO) C. difficile Screen (NEGATIVE) C.difficile 027-NAP1-B1 (NEGATIVE) 09/23/23 09/23/23 09/23/23 Range/Units 11:40 13:10 16:20 WBC (4.23-9.07) x10^3/uL RBC (4.63-6.08) x10^6/uL Hgb (13.7-17.5) g/dL Hct (40.1-51.0) % MCV (79.0-92.2) fL MCH (25.7-32.2) pg MCHC (32.3-36.5) g/dL RDW (11.6-14.4) % Plt Count (163-337) x10^3/uL MPV (9.4-12.4) fL Sodium (135-145) mmol/L Potassium (3.5-5.1) mmol/L Chloride (98-107) mmol/L Carbon Dioxide (22-30) mmol/L Anion Gap (5-15) MEQ/L BUN (9-20) mg/dL Creatinine (0.66-1.25) mg/dL Estimated GFR ML/MIN Glucose (74-106) mg/dL POC Glucometer 212 H (74 to 106) mg/dL Hemoglobin A1c (4.5-6.0) % Calcium (8.4-10.2) mg/dL Total Bilirubin (0.2-1.3) mg/dL AST (17-59) U/L ALT (0-50) U/L Alkaline Phosphatase (38-126) U/L Serum Total Protein (6.3-8.2) g/dL Albumin (3.5-5.0) g/dL Urine Color Yellow (Yellow) Urine Appearance Clear (Clear) Urine pH 6.0 (4.6-8.0) Ur Specific [place] 1.015 (1.005-1.030) Urine Protein 300 A (Negative) Urine Glucose (UA) 500 A (Negative) mg/dL Urine Ketones Negative (Negative) Urine Blood Small A (Negative) Urine Nitrite Negative (Negative) Urine Bilirubin Negative (Negative) Urine Urobilinogen 0.2 (0.2) mg/dL Ur Leukocyte Esterase Negative (Negative) U Hyaline Cast (Auto) NONE SEEN (0-2) /LPF Urine Microscopic RBC 0-2 (0-5) /HPF Urine Microscopic WBC 0-2 (0-5) /HPF Ur Epithelial Cells None Seen (None Seen) /HPF Urine Bacteria None Seen (None Seen) /HPF Urine Culture Reflexed NO (NO) C. difficile Screen NEGATIVE (NEGATIVE) C.difficile 027-NAP1-B1 PRESUMPTIVE NEGATIVE (NEGATIVE) Radiology Exams: Radiology Procedures Category Date Time Status ABDOMEN AND PELVIS W/0 CONTRAS [CT] Stat Exams 09/21/23 21:08 Completed <SONDRA FLEMING - Last Filed: 09/23/23 21:05> Assessment/Plan (1) Intractable vomiting Current Visit: Yes Status: Acute Assessment & Plan: -Most likely secondary to hyperglycemia/? hyperemesis syndrome 2:2 THC -CT abd/pelvis with no acute findings -Endorses nausea this morning - no vomiting - not able to tolerate much of a diet -PRN anti-emetics Code(s): R11.10 - VOMITING, UNSPECIFIED (2) Lactic acid acidosis Current Visit: Yes Status: Acute Assessment & Plan: - LA on admission 2.4- gave 2L NS fluid boluses in ER - LA 09/22/23 was 3.2 - 1 L NS fluid bolus ordered. -Most likely secondary to hyperglycemia - IVF - UDS positive for THC -LA now at 1.6-resolved Code(s): E87.20 - ACIDOSIS, UNSPECIFIED (3) Headache Current Visit: Yes Status: Acute Assessment & Plan: - 2:2 N/V -dehydration - tylenol for pain - IVF 09/22: -resolved Code(s): R51.9 - HEADACHE, UNSPECIFIED (4) Essential (primary) hypertension Current Visit: Yes Status: Acute Assessment & Plan: - continue home meds Code(s): I10 - ESSENTIAL (PRIMARY) HYPERTENSION (5) Type 2 diabetes mellitus with diabetic chronic kidney disease Current Visit: Yes Status: Acute Assessment & Plan: - accuchecks ac/hs - Lantus 45 units QAM. moderate dose s/s with meals- consider high dose s/s vs humalog with meals - A1C 10.29 Code(s): E11.22 - TYPE 2 DIABETES MELLITUS W DIABETIC CHRONIC KIDNEY DISEASE (6) Tachycardia Current Visit: Yes Status: Acute Assessment & Plan: - tele - 2:2 N/V - UDS with THC - IVF 09/22: -resolved Code(s): R00.0 - TACHYCARDIA, UNSPECIFIED (7) Anxiety and depression Current Visit: Yes Status: Acute Assessment & Plan: - Continue home meds Code(s): F41.9 - ANXIETY DISORDER, UNSPECIFIED; F32.A - DEPRESSION, UNSPECIFIED (8) Marijuana smoker Current Visit: Yes Status: Acute Assessment & Plan: - advised cessation - may be hyperemesis syndrome 2:2 THC - warm showers and nausea meds PRN Code(s): F12.90 - CANNABIS USE, UNSPECIFIED, UNCOMPLICATED (9) Morbid obesity with BMI of 40.0-44.9, adult Current Visit: Yes Status: Acute Assessment & Plan: - Recommend ADA diet and exercise Code(s): E66.01 - MORBID (SEVERE) OBESITY DUE TO EXCESS CALORIES; Z68.41 - BODY MASS INDEX [BMI] 40.0-44.9, ADULT (10) Smoker Current Visit: Yes Status: Chronic Assessment & Plan: - daily smoker - advised cessation - nicotine patch Code(s): F17.200 - NICOTINE DEPENDENCE, UNSPECIFIED, UNCOMPLICATED (11) Dehydration Current Visit: Yes Status: Resolved Assessment & Plan: - anion gap WNL - IVF VTE: Lovenox PPI: Protonix Next of KIN: Juan Jose Lao [phone] D/C plan: Code status: Full Code(s): E86.0 - DEHYDRATION (12) Hypokalemia due to excessive gastrointestinal loss of potassium Current Visit: Yes Status: Acute Assessment & Plan: -potassium at 3.4 this morning, will replace Code(s): E87.6 - HYPOKALEMIA <PÉREZ TOMPKINS - Last Filed: 09/23/23 11:34> CRYS Encounter - CRYS Encounter Attestation CRYS Encounter Attestation: "IhavepersonallyseenandexaminedPHIMAHNAZ JOHN andhavediscussed pertinent aspects of their care with Pérez Erwin agree with the history, physical exam (any modifications based on my personal exam will be noted below), assessment, and plan as outlined in original note. Please see immediately below for my summary of findings and additional assessment and plan along with any meaningful corrections/explanations to the Subjective/Objective portions of the CRYS note will be noted." My portion of the encounter took place via telemedicine. -Patient had N/V, which is better however he has diarrhea as of this morning. Likely viral GE however possibly related to marijuana use as well. Denies any UTI symptoms despite perinephric stranding seen on the CT. <SONDRA FLEMING - Last Filed: 09/23/23 21:05>
[2023-09-23] MEDS: Klor Con PO SCH (06:33)
[2023-09-23] MEDS ORDERED: NON-FORMULARY ITEM (Omeprazole [Omeprazole] 20 MG Capsule.Dr) PO SCH (10:00)
[2023-09-23] MEDS ORDERED: SEVELAMER CARBONATE 800 MG PO SCH (10:00)
[2023-09-23] MEDS ORDERED: Protonix 40MG Tablet PO SCH (10:00)
[2023-09-23] MEDS: Prozac 20 MG PO SCH (10:32)
[2023-09-23 11:52] LABS: Appearance Clear (Clear); Bacteria None Seen /HPF (None Seen); Bilirubin Negative (Negative); Blood Small (Negative); Epithelial Cells None Seen /HPF (None Seen); Glucose, Urine 500 mg/dL (Negative); Hyaline Casts NONE SEEN /LPF (0-2); Ketones Negative (Negative); Leukocyte Esterase Negative (Negative); Nitrite Negative (Negative); Protein,Urine Dip 300 (Negative); RBC 0-2 /HPF (0-5); Specific Gravity 1.015 (1.005-1.030); Urobilinogen 0.2 mg/dL (0.2); WBC 0-2 /HPF (0-5)
[2023-09-23 11:53] LABS: ADD URINE CULTURE? NO (NO)
[2023-09-23] MEDS: Tums EX 750 MG PO PRN (12:36)
[2023-09-23 13:53] LABS: 027 TOX PROD PRESUMPTIVE NEGATIVE (NEGATIVE); TOXIGENIC C. DIFF ORG NEGATIVE (NEGATIVE)
[2023-09-23] MEDS ORDERED: Pepcid 20 MG ONE (15:21)
[2023-09-23] MEDS: Pepcid 20 MG PO SCH (15:23)
[2023-09-23] MEDS: IMODIUM 2 MG PO PRN (23:32)
[2023-09-23] MEDS: MELATONIN PO PRN (23:32)
--- NOTE | 2023-09-24 05:02 | PCM.NOTE ---
Date and Time: 09/24/23 0500 Subjective Assessment: Mr. Rush is a 52 year old male with a pmhx of HTN, HLD, and diabetes admitted 09/21/23 with hyperglycemia and associated nausea and vomiting. Patient also noted with lactic acidosis- likely type B secondary to hyperglycemia. CT abd/ pelvis negative for acute etiology. Blood glucose levels are now stable. 09/23/23: Met with patient bedside. Endorses multiple diarrheal episodes overnight with nausea. Not able to tolerate much of a diet. Urine culture with skin contaminant. Will collect stools for cdiff and urinalysis. Objective Data Vital Signs: Vital Signs - 24 hr Temp Pulse Resp BP Pulse Ox 09/24/23 03:46 97.5 F 76 18 145/86 93 L 09/24/23 02:00 80 09/23/23 22:55 97.3 F 80 18 148/83 95 09/23/23 18:54 97.3 F 76 16 128/73 97 09/23/23 18:42 90 L 09/23/23 16:00 97.7 F 72 20 108/65 90 L 09/23/23 11:58 97.7 F 68 18 168/74 94 L 09/23/23 08:00 99.2 F 82 20 130/73 94 L 09/23/23 07:10 96 Pain Assessment - Last Documented Pain Intensity 0 Intake and Output: Intake & Output 09/21/23 09/22/23 09/23/23 09/24/23 11:59 11:59 11:59 11:59 Intake Total 1543 5122 1643 Output Total 1225 1550 700 Balance 318 3572 943 Weight 139.2 kg Lab Results: Lab Results-Last 24 Hours 09/23/23 09/23/23 09/23/23 Range/Units 04:37 04:37 06:39 Sodium 135 (135-145) mmol/L Potassium 3.4 L (3.5-5.1) mmol/L Chloride 104 (98-107) mmol/L Carbon Dioxide 25 (22-30) mmol/L Anion Gap 8.8 (5-15) MEQ/L BUN 17 (9-20) mg/dL Creatinine 0.98 (0.66-1.25) mg/dL Estimated GFR 91.6 ML/MIN Glucose 175 H (74-106) mg/dL POC Glucometer 175 H (74 to 106) mg/dL Hemoglobin A1c 10.29 H (4.5-6.0) % Calcium 8.9 (8.4-10.2) mg/dL Total Bilirubin 0.40 (0.2-1.3) mg/dL AST 23 (17-59) U/L ALT 19 (0-50) U/L Alkaline Phosphatase 75 (38-126) U/L Serum Total Protein 6.2 L (6.3-8.2) g/dL Albumin 3.4 L (3.5-5.0) g/dL Urine Color (Yellow) Urine Appearance (Clear) Urine pH (4.6-8.0) Ur Specific [place] (1.005-1.030) Urine Protein (Negative) Urine Glucose (UA) (Negative) mg/dL Urine Ketones (Negative) Urine Blood (Negative) Urine Nitrite (Negative) Urine Bilirubin (Negative) Urine Urobilinogen (0.2) mg/dL Ur Leukocyte Esterase (Negative) U Hyaline Cast (Auto) (0-2) /LPF Urine Microscopic RBC (0-5) /HPF Urine Microscopic WBC (0-5) /HPF Ur Epithelial Cells (None Seen) /HPF Urine Bacteria (None Seen) /HPF Urine Culture Reflexed (NO) C. difficile Screen (NEGATIVE) C.difficile 027-NAP1-B1 (NEGATIVE) 09/23/23 09/23/23 09/23/23 Range/Units 11:06 11:32 11:40 Sodium (135-145) mmol/L Potassium 3.9 (3.5-5.1) mmol/L Chloride (98-107) mmol/L Carbon Dioxide (22-30) mmol/L Anion Gap (5-15) MEQ/L BUN (9-20) mg/dL Creatinine (0.66-1.25) mg/dL Estimated GFR ML/MIN Glucose (74-106) mg/dL POC Glucometer 239 H (74 to 106) mg/dL Hemoglobin A1c (4.5-6.0) % Calcium (8.4-10.2) mg/dL Total Bilirubin (0.2-1.3) mg/dL AST (17-59) U/L ALT (0-50) U/L Alkaline Phosphatase (38-126) U/L Serum Total Protein (6.3-8.2) g/dL Albumin (3.5-5.0) g/dL Urine Color Yellow (Yellow) Urine Appearance Clear (Clear) Urine pH 6.0 (4.6-8.0) Ur Specific [place] 1.015 (1.005-1.030) Urine Protein 300 A (Negative) Urine Glucose (UA) 500 A (Negative) mg/dL Urine Ketones Negative (Negative) Urine Blood Small A (Negative) Urine Nitrite Negative (Negative) Urine Bilirubin Negative (Negative) Urine Urobilinogen 0.2 (0.2) mg/dL Ur Leukocyte Esterase Negative (Negative) U Hyaline Cast (Auto) NONE SEEN (0-2) /LPF Urine Microscopic RBC 0-2 (0-5) /HPF Urine Microscopic WBC 0-2 (0-5) /HPF Ur Epithelial Cells None Seen (None Seen) /HPF Urine Bacteria None Seen (None Seen) /HPF Urine Culture Reflexed NO (NO) C. difficile Screen (NEGATIVE) C.difficile 027-NAP1-B1 (NEGATIVE) 09/23/23 09/23/23 09/23/23 Range/Units 13:10 16:20 21:30 Sodium (135-145) mmol/L Potassium (3.5-5.1) mmol/L Chloride (98-107) mmol/L Carbon Dioxide (22-30) mmol/L Anion Gap (5-15) MEQ/L BUN (9-20) mg/dL Creatinine (0.66-1.25) mg/dL Estimated GFR ML/MIN Glucose (74-106) mg/dL POC Glucometer 212 H 190 H (74 to 106) mg/dL Hemoglobin A1c (4.5-6.0) % Calcium (8.4-10.2) mg/dL Total Bilirubin (0.2-1.3) mg/dL AST (17-59) U/L ALT (0-50) U/L Alkaline Phosphatase (38-126) U/L Serum Total Protein (6.3-8.2) g/dL Albumin (3.5-5.0) g/dL Urine Color (Yellow) Urine Appearance (Clear) Urine pH (4.6-8.0) Ur Specific [place] (1.005-1.030) Urine Protein (Negative) Urine Glucose (UA) (Negative) mg/dL Urine Ketones (Negative) Urine Blood (Negative) Urine Nitrite (Negative) Urine Bilirubin (Negative) Urine Urobilinogen (0.2) mg/dL Ur Leukocyte Esterase (Negative) U Hyaline Cast (Auto) (0-2) /LPF Urine Microscopic RBC (0-5) /HPF Urine Microscopic WBC (0-5) /HPF Ur Epithelial Cells (None Seen) /HPF Urine Bacteria (None Seen) /HPF Urine Culture Reflexed (NO) C. difficile Screen NEGATIVE (NEGATIVE) C.difficile 027-NAP1-B1 PRESUMPTIVE NEGATIVE (NEGATIVE) Assessment/Plan (1) Intractable vomiting Current Visit: Yes Status: Acute Assessment & Plan: -Most likely secondary to hyperglycemia/? hyperemesis syndrome 2:2 THC -CT abd/pelvis with no acute findings -Endorses nausea this morning - no vomiting - not able to tolerate much of a diet -PRN anti-emetics Code(s): R11.10 - VOMITING, UNSPECIFIED (2) Lactic acid acidosis Current Visit: Yes Status: Acute Assessment & Plan: - LA on admission 2.4- gave 2L NS fluid boluses in ER - LA 09/22/23 was 3.2 - 1 L NS fluid bolus ordered. -Most likely secondary to hyperglycemia - IVF - UDS positive for THC -LA now at 1.6-resolved Code(s): E87.20 - ACIDOSIS, UNSPECIFIED (3) Headache Current Visit: Yes Status: Acute Assessment & Plan: - 2:2 N/V -dehydration - tylenol for pain - IVF 09/22: -resolved Code(s): R51.9 - HEADACHE, UNSPECIFIED (4) Essential (primary) hypertension Current Visit: Yes Status: Acute Assessment & Plan: - continue home meds Code(s): I10 - ESSENTIAL (PRIMARY) HYPERTENSION (5) Type 2 diabetes mellitus with diabetic chronic kidney disease Current Visit: Yes Status: Acute Assessment & Plan: - accuchecks ac/hs - Lantus 45 units QAM. moderate dose s/s with meals- consider high dose s/s vs humalog with meals - A1C 10.29 Code(s): E11.22 - TYPE 2 DIABETES MELLITUS W DIABETIC CHRONIC KIDNEY DISEASE (6) Tachycardia Current Visit: Yes Status: Acute Assessment & Plan: - tele - 2:2 N/V - UDS with THC - IVF 09/22: -resolved Code(s): R00.0 - TACHYCARDIA, UNSPECIFIED (7) Anxiety and depression Current Visit: Yes Status: Acute Assessment & Plan: - Continue home meds Code(s): F41.9 - ANXIETY DISORDER, UNSPECIFIED; F32.A - DEPRESSION, UNSPECIFIED (8) Marijuana smoker Current Visit: Yes Status: Acute Assessment & Plan: - advised cessation - may be hyperemesis syndrome 2:2 THC - warm showers and nausea meds PRN Code(s): F12.90 - CANNABIS USE, UNSPECIFIED, UNCOMPLICATED (9) Morbid obesity with BMI of 40.0-44.9, adult Current Visit: Yes Status: Acute Assessment & Plan: - Recommend ADA diet and exercise Code(s): E66.01 - MORBID (SEVERE) OBESITY DUE TO EXCESS CALORIES; Z68.41 - BODY MASS INDEX [BMI] 40.0-44.9, ADULT (10) Smoker Current Visit: Yes Status: Chronic Assessment & Plan: - daily smoker - advised cessation - nicotine patch Code(s): F17.200 - NICOTINE DEPENDENCE, UNSPECIFIED, UNCOMPLICATED (11) Dehydration Current Visit: Yes Status: Resolved Assessment & Plan: - anion gap WNL - IVF VTE: Lovenox PPI: Protonix Next of KIN: Juan Jose Lao [phone] D/C plan: Code status: Full Code(s): R11.10 - VOMITING, UNSPECIFIED (2) Lactic acid acidosis Current Visit: Yes Status: Acute Code(s): E87.20 - ACIDOSIS, UNSPECIFIED (3) Headache Current Visit: Yes Status: Acute Code(s): R51.9 - HEADACHE, UNSPECIFIED (4) Essential (primary) hypertension Current Visit: Yes Status: Acute Code(s): I10 - ESSENTIAL (PRIMARY) HYPERTENSION (5) Type 2 diabetes mellitus with diabetic chronic kidney disease Current Visit: Yes Status: Acute Code(s): E11.22 - TYPE 2 DIABETES MELLITUS W DIABETIC CHRONIC KIDNEY DISEASE (6) Tachycardia Current Visit: Yes Status: Acute Code(s): R00.0 - TACHYCARDIA, UNSPECIFIED (7) Anxiety and depression Current Visit: Yes Status: Acute Code(s): F41.9 - ANXIETY DISORDER, UNSPECIFIED; F32.A - DEPRESSION, UNSPECIFIED (8) Marijuana smoker Current Visit: Yes Status: Acute Code(s): F12.90 - CANNABIS USE, UNSPECIFIED, UNCOMPLICATED (9) Morbid obesity with BMI of 40.0-44.9, adult Current Visit: Yes Status: Acute Code(s): E66.01 - MORBID (SEVERE) OBESITY D UE TO EXCESS CALORIES; Z68.41 - BODY MASS INDEX [BMI] 40.0-44.9, ADULT (10) Smoker Current Visit: Yes Status: Chronic Code(s): F17.200 - NICOTINE DEPENDENCE, UNSPECIFIED, UNCOMPLICATED (11) Dehydration Current Visit: Yes Status: Resolved Code(s): E86.0 - DEHYDRATION (12) Hypokalemia due to excessive gastrointestinal loss of potassium Current Visit: Yes Status: Acute Code(s): E87.6 - HYPOKALEMIA
[2023-09-24 09:25] LABS: Absolute Neutrophil Ct (ANC) 5.06 x10^3/uL (1.78-5.38); BASOPHIL % 1.3 % (0.2-1.2); Basophil (Absolute #) 0.11 x10^3/uL (0.01-0.08); Eosinophil (Absolute #) 0.26 x10^3/uL (0.04-0.54); Hemoglobin 13.9 g/dL (13.7-17.5); IMMATURE GRAN # 0.07 x10^3u/L (0.001-0.031); IMMATURE GRAN % 0.8 % (0.001-0.429); Lymphocyte (Absolute #) 2.37 x10^3/uL (1.32-3.57); Mean Cell Volume 92.1 fL (79.0-92.2); Mean Corpuscular Hemoglobin 29.8 pg (25.7-32.2); Mean Corpuscular Hgb Concent. 32.3 g/dL (32.3-36.5); Mean Platelet Volume 9.9 fL (9.4-12.4); Monocyte (Absolute #) 0.92 x10^3/uL (0.30-0.82); Monocytes % 10.5 % (5.3-12.2); Neutrophil % 57.4 % (34.0-67.9); Platelet Count 229 x10^3/uL (163-337); Red Blood Count 4.67 x10^6/uL (4.63-6.08); Red Cell Distribution Width 12.6 % (11.6-14.4); White Blood Count 8.8 x10^3/uL (4.23-9.07)
[2023-09-24 09:38] LABS: ALBUMIN 3.5 g/dL (3.5-5.0); ANION GAP 10.9 MEQ/L (5-15); BILIRUBIN,TOTAL 0.4 mg/dL (0.2-1.3); Creatinine 1 0.95 mg/dL (0.66-1.25); EST GLOMERULAR FILTRATION RATE 95.1 ML/MIN; Potassium 3.8 mmol/L (3.5-5.1); Total Protein 6.4 g/dL (6.3-8.2)
[2023-09-24] MEDS: Protonix 40MG Tablet PO SCH (09:47)
--- NOTE | 2023-09-24 09:52 | PCM.DS ---
Discharge Summary Date of Admission: 09/22/23 02:30 Date of Discharge: 09/24/23 Admitting Physician: VIN EASTMAN MD Primary Care Provider: NO FAMILY DOCTOR Allergies Allergies No Known Drug Allergies Allergy (Unverified 09/21/23 21:01) Hospital Summary - Hospital Course Hospital Course: Mr. Rush is a 52 year old male with a pmhx of HTN, HLD, and diabetes admitted 09/21/23 with hyperglycemia and associated nausea and vomiting. Patient also noted with lactic acidosis- likely type B secondary to hyperglycemia. CT abd/ pelvis negative for acute etiology. Blood glucose levels are now stable. Patient is scheduled with Dr. Christian 09/25/23 to get started on his insulin pump. No longer having N/V/D. Labs and vitals stable. Discharge Note New Diagnosis: Hyperglycemia/intractable N/V New Medications: none Follow Up: PCP/ Endocrinology (scheduled for 09/24/23) Latest Assessment & Plan (1) Intractable vomiting Current Visit: Yes Status: Acute Assessment & Plan: -Most likely secondary to hyperglycemia/? hyperemesis syndrome 2:2 THC -CT abd/pelvis with no acute findings -Endorses nausea this morning - no vomiting - not able to tolerate much of a diet -PRN anti-emetics 09/23: -Resolved Code(s): R11.10 - VOMITING, UNSPECIFIED (2) Lactic acid acidosis Current Visit: Yes Status: Acute Assessment & Plan: - LA on admission 2.4- gave 2L NS fluid boluses in ER - LA 09/22/23 was 3.2 - 1 L NS fluid bolus ordered. -Most likely secondary to hyperglycemia - IVF - UDS positive for THC -LA now at 1.6-resolved Code(s): E87.20 - ACIDOSIS, UNSPECIFIED (3) Headache Current Visit: Yes Status: Acute Assessment & Plan: - 2:2 N/V -dehydration - tylenol for pain - IVF 09/22: -resolved Code(s): R51.9 - HEADACHE, UNSPECIFIED (4) Essential (primary) hypertension Current Visit: Yes Status: Acute Assessment & Plan: - continue home meds Code(s): I10 - ESSENTIAL (PRIMARY) HYPERTENSION (5) Type 2 diabetes mellitus with diabetic chronic kidney disease Current Visit: Yes Status: Acute Assessment & Plan: - accuchecks ac/hs - Lantus 45 units QAM. moderate dose s/s with meals- consider high dose s/s vs humalog with meals - A1C 10.29 09/23: -Patient to receive insulin pump tomorrow with Dr. Christian- continue home medications until appt Code(s): E11.22 - TYPE 2 DIABETES MELLITUS W DIABETIC CHRONIC KIDNEY DISEASE (6) Tachycardia Current Visit: Yes Status: Acute Assessment & Plan: - tele - 2:2 N/V - UDS with THC - IVF 09/22: -resolved Code(s): R00.0 - TACHYCARDIA, UNSPECIFIED (7) Anxiety and depression Current Visit: Yes Status: Acute Assessment & Plan: - Continue home meds Code(s): F41.9 - ANXIETY DISORDER, UNSPECIFIED; F32.A - DEPRESSION, UNSPECIFIED (8) Marijuana smoker Current Visit: Yes Status: Acute Assessment & Plan: - advised cessation - may be hyperemesis syndrome 2:2 THC - warm showers and nausea meds PRN Code(s): F12.90 - CANNABIS USE, UNSPECIFIED, UNCOMPLICATED (9) Morbid obesity with BMI of 40.0-44.9, adult Current Visit: Yes Status: Acute Assessment & Plan: - Recommend ADA diet and exercise Code(s): E66.01 - MORBID (SEVERE) OBESITY DUE TO EXCESS CALORIES; Z68.41 - BODY MASS INDEX [BMI] 40.0-44.9, ADULT (10) Smoker Current Visit: Yes Status: Chronic Assessment & Plan: - daily smoker - advised cessation - nicotine patch Code(s): F17.200 - NICOTINE DEPENDENCE, UNSPECIFIED, UNCOMPLICATED (11) Dehydration Current Visit: Yes Status: Resolved Assessment & Plan: - anion gap WNL - IVF 09/23: -resolved (12) Diarrhea -CDIFF negative -Resolved I spent 37 minutes [id number] with the patient on the day of discharge performing discharge exam, discussing hospital stay and discharge instructions with patient and caregivers, preparation of discharge records, prescriptions & referral forms and addressing any questions/concerns the patient had as documented above. - Vitals & Intake/Output Vital Signs: Vital Signs Temperature 97.7 F 09/24/23 08:00 Pulse Rate 73 09/24/23 08:00 Respiratory Rate 17 09/24/23 08:00 Blood Pressure 160/80 09/24/23 08:00 O2 Sat by Pulse Oximetry 95 09/24/23 08:00 Intake & Output: Intake & Output 09/21/23 09/22/23 09/23/23 09/24/23 11:59 11:59 11:59 11:59 Intake Total 1543 5122 1643 Output Total 1225 1550 700 Balance 318 5512 943 Weight 139.2 kg - Lab Result Diagrams: 09/24/23 06:18 09/24/23 06:18 Lab Results-Last 24 Hrs: Lab Results-Last 24 Hours 09/23/23 09/23/23 09/23/23 Range/Units 11:06 11:32 11:40 WBC (4.23-9.07) x10^3/uL RBC (4.63-6.08) x10^6/uL Hgb (13.7-17.5) g/dL Hct (40.1-51.0) % MCV (79.0-92.2) fL MCH (25.7-32.2) pg MCHC (32.3-36.5) g/dL RDW (11.6-14.4) % Plt Count (163-337) x10^3/uL MPV (9.4-12.4) fL Gran % (34.0-67.9) % Immature Gran % (Auto) (0.001-0.429) % Nucleat RBC Rel Count (0.00-0.2) % Eos # (Auto) (0.04-0.54) x10^3/uL Immature Gran # (Auto) (0.001-0.031) x10^3u/L Absolute Lymphs (auto) (1.32-3.57) x10^3/uL Absolute Monos (auto) (0.30-0.82) x10^3/uL Absolute Nucleated RBC (0.00-0.012) x10^3u/L Lymphocytes % (21.8-53.1) % Monocytes % (5.3-12.2) % Eosinophils % (0.8-7.0) % Basophils % (0.2-1.2) % Absolute Granulocytes (1.78-5.38) x10^3/uL Basophils # (0.01-0.08) x10^3/uL Sodium (135-145) mmol/L Potassium 3.9 (3.5-5.1) mmol/L Chloride (98-107) mmol/L Carbon Dioxide (22-30) mmol/L Anion Gap (5-15) MEQ/L BUN (9-20) mg/dL Creatinine (0.66-1.25) mg/dL Estimated GFR ML/MIN Glucose (74-106) mg/dL POC Glucometer 239 H (74 to 106) mg/dL Calcium (8.4-10.2) mg/dL Total Bilirubin (0.2-1.3) mg/dL AST (17-59) U/L ALT (0-50) U/L Alkaline Phosphatase (38-126) U/L Serum Total Protein (6.3-8.2) g/dL Albumin (3.5-5.0) g/dL Urine Color Yellow (Yellow) Urine Appearance Clear (Clear) Urine pH 6.0 (4.6-8.0) Ur Specific [place] 1.015 (1.005-1.030) Urine Protein 300 A (Negative) Urine Glucose (UA) 500 A (Negative) mg/dL Urine Ketones Negative (Negative) Urine Blood Small A (Negative) Urine Nitrite Negative (Negative) Urine Bilirubin Negative (Negative) Urine Urobilinogen 0.2 (0.2) mg/dL Ur Leukocyte Esterase Negative (Negative) U Hyaline Cast (Auto) NONE SEEN (0-2) /LPF Urine Microscopic RBC 0-2 (0-5) /HPF Urine Microscopic WBC 0-2 (0-5) /HPF Ur Epithelial Cells None Seen (None Seen) /HPF Urine Bacteria None Seen (None Seen) /HPF Urine Culture Reflexed NO (NO) C. difficile Screen (NEGATIVE) C.difficile 027-NAP1-B1 (NEGATIVE) 09/23/23 09/23/23 09/23/23 Range/Units 13:10 16:20 21:30 WBC (4.23-9.07) x10^3/uL RBC (4.63-6.08) x10^6/uL Hgb (13.7-17.5) g/dL Hct (40.1-51.0) % MCV (79.0-92.2) fL MCH (25.7-32.2) pg MCHC (32.3-36.5) g/dL RDW (11.6-14.4) % Plt Count (163-337) x10^3/uL MPV (9.4-12.4) fL Gran % (34.0-67.9) % Immature Gran % (Auto) (0.001-0.429) % Nucleat RBC Rel Count (0.00-0.2) % Eos # (Auto) (0.04-0.54) x10^3/uL Immature Gran # (Auto) (0.001-0.031) x10^3u/L Absolute Lymphs (auto) (1.32-3.57) x10^3/uL Absolute Monos (auto) (0.30-0.82) x10^3/uL Absolute Nucleated RBC (0.00-0.012) x10^3u/L Lymphocytes % (21.8-53.1) % Monocytes % (5.3-12.2) % Eosinophils % (0.8-7.0) % Basophils % (0.2-1.2) % Absolute Granulocytes (1.78-5.38) x10^3/uL Basophils # (0.01-0.08) x10^3/uL Sodium (135-145) mmol/L Potassium (3.5-5.1) mmol/L Chloride (98-107) mmol/L Carbon Dioxide (22-30) mmol/L Anion Gap (5-15) MEQ/L BUN (9-20) mg/dL Creatinine (0.66-1.25) mg/dL Estimated GFR ML/MIN Glucose (74-106) mg/dL POC Glucometer 212 H 190 H (74 to 106) mg/dL Calcium (8.4-10.2) mg/dL Total Bilirubin (0.2-1.3) mg/dL AST (17-59) U/L ALT (0-50) U/L Alkaline Phosphatase (38-126) U/L Serum Total Protein (6.3-8.2) g/dL Albumin (3.5-5.0) g/dL Urine Color (Yellow) Urine Appearance (Clear) Urine pH (4.6-8.0) Ur Specific [place] (1.005-1.030) Urine Protein (Negative) Urine Glucose (UA) (Negative) mg/dL Urine Ketones (Negative) Urine Blood (Negative) Urine Nitrite (Negative) Urine Bilirubin (Negative) Urine Urobilinogen (0.2) mg/dL Ur Leukocyte Esterase (Negative) U Hyaline Cast (Auto) (0-2) /LPF Urine Microscopic RBC (0-5) /HPF Urine Microscopic WBC (0-5) /HPF Ur Epithelial Cells (None Seen) /HPF Urine Bacteria (None Seen) /HPF Urine Culture Reflexed (NO) C. difficile Screen NEGATIVE (NEGATIVE) C.difficile 027-NAP1-B1 PRESUMPTIVE NEGATIVE (NEGATIVE) 09/24/23 09/24/23 09/24/23 Range/Units 06:18 06:18 07:47 WBC 8.8 (4.23-9.07) x10^3/uL RBC 4.67 (4.63-6.08) x10^6/uL Hgb 13.9 (13.7-17.5) g/dL Hct 43.0 (40.1-51.0) % MCV 92.1 (79.0-92.2) fL MCH 29.8 (25.7-32.2) pg MCHC 32.3 (32.3-36.5) g/dL RDW 12.6 (11.6-14.4) % Plt Count 229 (163-337) x10^3/uL MPV 9.9 (9.4-12.4) fL Gran % 57.4 (34.0-67.9) % Immature Gran % (Auto) 0.8 H (0.001-0.429) % Nucleat RBC Rel Count 0.0 (0.00-0.2) % Eos # (Auto) 0.26 (0.04-0.54) x10^3/uL Immature Gran # (Auto) 0.07 H (0.001-0.031) x10^3u/L Absolute Lymphs (auto) 2.37 (1.32-3.57) x10^3/uL Absolute Monos (auto) 0.92 H (0.30-0.82) x10^3/uL Absolute Nucleated RBC 0.00 (0.00-0.012) x10^3u/L Lymphocytes % 27.0 (21.8-53.1) % Monocytes % 10.5 (5.3-12.2) % Eosinophils % 3.0 (0.8-7.0) % Basophils % 1.3 H (0.2-1.2) % Absolute Granulocytes 5.06 (1.78-5.38) x10^3/uL Basophils # 0.11 H (0.01-0.08) x10^3/uL Sodium 137 (135-145) mmol/L Potassium 3.8 (3.5-5.1) mmol/L Chloride 104 (98-107) mmol/L Carbon Dioxide 26 (22-30) mmol/L Anion Gap 10.9 (5-15) MEQ/L BUN 17 (9-20) mg/dL Creatinine 0.95 (0.66-1.25) mg/dL Estimated GFR 95.1 ML/MIN Glucose 214 H (74-106) mg/dL POC Glucometer 212 H (74 to 106) mg/dL Calcium 9.0 (8.4-10.2) mg/dL Total Bilirubin 0.40 (0.2-1.3) mg/dL AST 21 (17-59) U/L ALT 20 (0-50) U/L Alkaline Phosphatase 80 (38-126) U/L Serum Total Protein 6.4 (6.3-8.2) g/dL Albumin 3.5 (3.5-5.0) g/dL Urine Color (Yellow) Urine Appearance (Clear) Urine pH (4.6-8.0) Ur Specific [place] (1.005-1.030) Urine Protein (Negative) Urine Glucose (UA) (Negative) mg/dL Urine Ketones (Negative) Urine Blood (Negative) Urine Nitrite (Negative) Urine Bilirubin (Negative) Urine Urobilinogen (0.2) mg/dL Ur Leukocyte Esterase (Negative) U Hyaline Cast (Auto) (0-2) /LPF Urine Microscopic RBC (0-5) /HPF Urine Microscopic WBC (0-5) /HPF Ur Epithelial Cells (None Seen) /HPF Urine Bacteria (None Seen) /HPF Urine Culture Reflexed (NO) C. difficile Screen (NEGATIVE) C.difficile 027-NAP1-B1 (NEGATIVE) Micro Results-Entire Visit: Microbiology 09/21/23 23:11 Urine Culture - Final Urine, Void <10K NORMAL SKIN ELIANA PROBABLE SKIN CONTAMINANT Accuchecks Date 09/24/23 Date 09/23/23 Date 09/23/23 Date 09/23/23 Time 08:21 Discharge Exam General Appearance: no apparent distress Neurologic Exam: alert, oriented x 3, cooperative Eye Exam: PERRL Ears, Nose, Throat Exam: normal ENT inspection Neck Exam: normal inspection Respiratory Exam: normal breath sounds, lungs clear Cardiovascular Exam: regular rate/rhythm, normal heart sounds Gastrointestinal/Abdomen Exam: soft, normal bowel sounds Male Genitalia Exam: deferred Rectal Exam: deferred Back Exam: normal inspection Extremity Exam: amputations Skin Exam: normal color Final Diagnosis/Problem List - Final Discharge Diagnosis/Problem (1) Hypokalemia due to excessive gastrointestinal loss of potassium Current Visit: Yes Status: Resolved Code(s): E87.6 - HYPOKALEMIA (2) Intractable vomiting Current Visit: Yes Status: Resolved Code(s): R11.10 - VOMITING, UNSPECIFIED (3) Lactic acid acidosis Current Visit: Yes Status: Resolved Code(s): E87.20 - ACIDOSIS, UNSPECIFIED (4) Headache Current Visit: Yes Status: Resolved Code(s): R51.9 - HEADACHE, UNSPECIFIED (5) Essential (primary) hypertension Current Visit: Yes Status: Chronic Code(s): I10 - ESSENTIAL (PRIMARY) HYPERTENSION (6) Type 2 diabetes mellitus with diabetic chronic kidney disease Current Visit: Yes Status: Chronic Code(s): E11.22 - TYPE 2 DIABETES MELLITUS W DIABETIC CHRONIC KIDNEY DISEASE (7) Tachycardia Current Visit: Yes Status: Resolved Code(s): R00.0 - TACHYCARDIA, UNSPECIFIED (8) Anxiety and depression Current Visit: Yes Status: Chronic Code(s): F41.9 - ANXIETY DISORDER, UNSPECIFIED; F32.A - DEPRESSION, UNSPECIFIED (9) Marijuana smoker Current Visit: Yes Status: Chronic Code(s): F12.90 - CANNABIS USE, UNSPECIFIED, UNCOMPLICATED (10) Morbid obesity with BMI of 40.0-44.9, adult Current Visit: Yes Status: Chronic Code(s): E66.01 - MORBID (SEVERE) OBESITY DUE TO EXCESS CALORIES; Z68.41 - BODY MASS INDEX [BMI] 40.0-44.9, ADULT (11) Smoker Current Visit: Yes Status: Chronic Code(s): F17.200 - NICOTINE DEPENDENCE, UNSPECIFIED, UNCOMPLICATED (12) Dehydration Current Visit: Yes Status: Resolved Code(s): E86.0 - DEHYDRATION (13) Hyperglycemia due to type 2 diabetes mellitus Current Visit: Yes Status: Chronic Code(s): E11.65 - TYPE 2 DIABETES MELLITUS WITH HYPERGLYCEMIA - Discharge Disposition: Home, Self-Care Condition: Good Prescriptions: New Famotidine 20 mg [Pepcid 20 MG] 20 mg PO DAILY 30 Days #30 tablet Continue Fluoxetine HCl 10 mg [Prozac 10 mg] 20 mg PO DAILY Amitriptyline HCl 10 mg [Elavil 10 mg] 10 mg PO HS Metformin HCl 500 mg [Glucophage 500 MG] 500 mg PO BIDWM Ezetimibe 10 mg [Zetia 10 MG] 10 mg PO DAILY Semaglutide [Ozempic] 0.25 mg SQ WEEKLY Tamsulosin HCl 0.4 mg [Flomax 0.4 MG] 0.4 mg PO DAILY Pravastatin Sodium 20 tab PO HS Ondansetron ODT 4 MG [Zofran Odt 4 mg] 1 tab PO Q6HPRN PRN PRN Reason: Nausea/Vomiting Omeprazole 20 mg PO DAILY Olanzapine 5 mg [zyPREXA 5MG TABLET] 5 mg PO DAILY Metoprolol Tartrate 25 mg [Lopressor 25MG Tab] 25 mg PO CLARIFY Loratadine 10 mg [Claritin 10 mg] 10 mg PO DAILY Hydroxyzine HCl 25 mg [Atarax 25 mg] 25 mg PO HS Folic Acid 1 mg [Folate 1 mg] 1 mg PO DAILY Clopidogrel Bisulfate [Clopidogrel] 75 mg PO DAILY Sevelamer Carbonate [Renvela] 800 tab PO DAILY Aspirin EC 81 mg [Ecotrin 81 mg] 81 mg PO DAILY Gabapentin 600 mg PO TID Additional Instructions: Follow up with Venita Mariscal 10/08/23 at 9:00 am Patient to follow up for insulin pump placement 09/25/23 at 3:20pm as scheduled Follow up with: JUMA CHRISTIAN [NON-STAFF PHY W/O PRIVILEGES] - 10/10/23 11:00 am
[2023-09-24] MEDS ORDERED: PROTONIX 40 MG IV IV SCH (10:00)
[2023-09-24 12:13] VITALS: BP 188/94; PULSE 70; RESP 16; TEMP 97.6; O2SAT 97
[2023-09-24] MEDS ORDERED: Pepcid 20 MG PO SCH (15:09)
== END 2023-09-24 13:45 | disposition home or self-care (01) ==
LOC: ED 20:39 → MED SURG 09-22 02:30
PROVIDERS: ADMIT Internal Medicine Nephrology; ATTEND Internal Medicine Nephrology
DX: E87.6 Hypokalemia (principal); E11.65 Type 2 diabetes mellitus with hyperglycemia; E78.5 Hyperlipidemia, unspecified; E87.20 Acidosis, unspecified; R51.9 Headache, unspecified; E11.22 Type 2 diabetes mellitus with diabetic chronic kidney disease; I12.9 Hypertensive chronic kidney disease with stage 1 through stage 4 chronic kidney disease, or unspecified chronic kidney disease; N18.9 Chronic kidney disease, unspecified; R00.0 Tachycardia, unspecified; F41.9 Anxiety disorder, unspecified; F12.90 Cannabis use, unspecified, uncomplicated; E66.01 Morbid (severe) obesity due to excess calories; Z68.41 Body mass index [BMI] 40.0-44.9, adult; F17.200 Nicotine dependence, unspecified, uncomplicated; E86.0 Dehydration; R19.7 Diarrhea, unspecified; Z79.899 Other long term (current) drug therapy
CPT/HCPCS: 0241U; 36000; 36415; 74176; 80048; 80053; 80307; 81001; 82570; 82947; 83036; 83605; 83690; 84132; 84134; 84156; 84300; 84484; 85025; 85027; 87086; 87493; 93005; 94762; 96360; 96361; 96372; 96374; 96375; 99285; Q3014; 93268; J1650; J1815; J1817; J2060; J2405; J2550; A9270-GY; G0378